=== PATIENT | female | born 1990 | race Caucasian/White ===

== ENCOUNTER 2020-11-17 22:08 | Emergency (ER) | payer OTHER, SELFPAY ==
--- NOTE | ~2020-11-17 | XR_ITS ---
EXAMINATION: XR chest 2V 11/17/2020 23:05 INDICATION: Cough and fever. Sore throat. PROCEDURE: 2 view chest COMPARISON: No prior studies for comparison. FINDINGS: The lungs are clear. The cardiomediastinal silhouette is within normal limits. There are no pleural effusions. There is no pneumothorax suspected. IMPRESSION: 1: NO ACUTE CARDIOPULMONARY DISEASE. Reviewed, dictated and finalized at location A.
[2020-11-17 22:15] VITALS: BP 154/89; PULSE 101; RESP 20; TEMP 36.9; O2SAT 100
--- NOTE | 2020-11-18 00:17 | ED.URI ---
HPI - URI/Sore Throat General Chief Complaint: Upper Respiratory Infection Stated Complaint: Cough/sore throat/fever Time Seen by Provider: 11/17/20 23:13 Source: patient Mode of arrival: ambulatory Limitations: no limitations History of Present Illness HPI Narrative: Patient is a 30 year old female who presents with complaints of cough x 3-4 days. She reports intermittent body aches and chills. She reports she is vaccinated for Covid and denies known Covid exposure. Patient also reports bit by a cat earlier in the week and has also been taking Augmentin. She is also requesting UA because of urinary frequency. She denies further complaints. She denies significant medical history. Related Data Allergies Allergy/AdvReac Type Severity Reaction Status Date / Time No Known Allergies Allergy Verified 11/17/20 22:09 Review of Systems Review of Systems: Narrative: CONSTITUTIONAL: Denies fever, chills, or sweats. EYES: Denies visual changes, redness, or discharge. ENT: Denies rhinorrhea, congestion, reports sore throat. CARDIOVASCULAR: Denies chest pain, palpitations, or edema. RESPIRATORY: Reports cough denies SOB. GASTROINTESTINAL: Denies abdominal pain, nausea, vomiting, or diarrhea. GENITOURINARY: Denies dysuria or hematuria. SKIN: Denies rash or itching. MUSCULOSKELETAL: Denies back pain, joint pain, or myalgia. NEUROLOGIC: Denies headache, numbness, dizziness, or weakness. PSYCHIATRIC: Denies anxiety or depression. PMFSH Family History Family History Mother Depression Family history of malignant neoplasm of cervix Family history of seizure disorder Social History Social History (Updated 11/18/20 @ 00:40 by CESILIA Hogue) Smoking status: Never smoker Second hand tobacco smoke exposure: Yes Alcohol intake: never Substance use: never Living arrangements: with family Comments At the time of signature, I have reviewed and agree with nursing past medical, surgical, social, and family history unless otherwise noted. Please see nursing chart for further information. There is no relevant family history pertinent to the presenting complaint. Exam Narrative: Exam Narrative: GENERAL: Well-appearing, well-nourished, and in no acute distress. HEAD: Normocephalic, atraumatic. EYES: EOMI. No redness or drainage. Conjunctiva are normal. ENT: Mucous membranes pink and moist. Throat mild erythema. Uvula midline. NECK: AROM. Supple. No lymphadenopathy. CHEST: No respiratory distress. Clear to auscultation. HEART: Regular rate and rhythm. EXTREMITIES: Normal range of motion. No edema. SKIN: Warm, dry, no rash. NEURO: No focal deficits. Alert and oriented x3. Gait steady. PSYCH: Normal affect. No signs of depression or anxiety. Course Vital Signs Vital signs: Vital Signs Temperature 36.9 C 11/17/20 22:15 Pulse Rate 101 H 11/17/20 22:15 Respiratory Rate 20 11/17/20 22:15 Blood Pressure 154/89 H 11/17/20 22:15 Pulse Oximetry 100 11/17/20 22:15 Temperature 36.9 C 11/17/20 22:15 Pulse Rate 101 H 11/17/20 22:15 Respiratory Rate 20 11/17/20 22:15 Blood Pressure 154/89 H 11/17/20 22:15 Pulse Oximetry 100 11/17/20 22:15 Reviewed-patient is informed that they may have pre-hypertension or hypertension based on a blood pressure reading. I recommend the patient call the primary care provider listed on their discharge instructions or a physician of their choice this week to arrange follow-up for further evaluation of possible pre-hypertension or hypertension. MDM - URI/Sore Throat MDM Narrative Medical decision making narrative: Patient's UA negative, chest x-ray negative. Patient has previously had Covid vaccine and refuses Covid testing at this time. Discussed with patient most likely viral illness. Continue taking Augmentin for cat bite. Patient to follow-up with PCP in 3 to 5 days if symptoms persist. Started on Tessalon for
[2020-11-18 00:25] LABS: Add Urine Microscopic? YES; Appearance Urine Clear (Clear); Bilirubin Urine Negative (Negative); Blood Urine 3+ (Negative); Color Urine Straw (Yellow); Glucose Urine UA Negative (Negative); Ketones Urine Negative (Negative); Leukocyte Esterase Ur Trace LEU/UL (Negative); Nitrate Urine Negative (Negative); Protein Urine Negative (Negative); RBC Urine 21-50 /hpf (0-2); Specific Grav Ur 1.006 (1.001-1.035); Squamous Epithelial Cell Urine Many /hpf (Few); Urobilinogen Urine Negative mg/dL (<2.0); WBC Urine 0-3 /hpf
== END 2020-11-18 02:15 | disposition home or self-care (01) ==
PROVIDERS: Emergency Provider Nurse Practitioner; PCP Nurse Practitioner Family
DX: J06.9 Acute upper respiratory infection, unspecified (principal); R03.0 Elevated blood-pressure reading, without diagnosis of hypertension
CPT/HCPCS: 71046; 81001; 99283

== ENCOUNTER 2021-05-10 16:25 | Emergency (ER) | payer OTHER, SELFPAY ==
--- NOTE | ~2021-05-10 | XR_ITS ---
EXAMINATION: XR foot RT min 3V DATE: 05/10/2021 17:29 INDICATION: Dropped heavy object onto the distal metatarsals the right foot presenting with pain. TECHNIQUE: Dorsoplantar, two oblique and lateral views of the right foot were obtained. COMPARISON: None. FINDINGS: Alignment is normal. No fracture. Joint spaces are normal. Small plantar calcaneal spur. Soft tissue swelling with subcutaneous edema over the dorsal aspect of the distal forefoot. IMPRESSION: 1. No acute osseous abnormality. Reviewed, dictated and finalized at location A. WORKER MACHINE
[2021-05-10 16:40] VITALS: BP 136/74; PULSE 83; RESP 16; TEMP 36.9; O2SAT 99
--- NOTE | 2021-05-10 17:46 | ED.LOWEXIN ---
HPI - Extremity Injury (Lower) General Chief Complaint: Extremity Injury, Lower Stated Complaint: pain/swelling right foot Time Seen by Provider: 05/10/21 17:30 Source: patient Mode of arrival: ambulatory Limitations: no limitations History of Present Illness HPI Narrative: Andra Bhatia is a 30 yo female with no PMH who [facility] after dropping a lamp on the top of her right foot about 2 to 3 days ago. Continues to have some swelling and is tender Related Data Allergies Allergy/AdvReac Type Severity Reaction Status Date / Time No Known Allergies Allergy Verified 05/10/21 17:34 Review of Systems Review of Systems: CONSTITUTIONAL: Denies fever, chills, sweats. EYES: Denies visual changes, redness, discharge. ENT: Denies rhinorrhea, congestion, sore throat, otalgia. CARDIOVASCULAR: Denies chest pain, palpitations, edema. RESPIRATORY: Denies dyspnea, wheezing, cough GASTROINTESTINAL: Denies abdominal pain, nausea, vomiting, diarrhea. GENITOURINARY: Denies dysuria, hematuria, abnormal discharge SKIN: Denies rash or itching. NEUROLOGIC: Denies numbness, or focal weakness. PSYCHIATRIC: Denies anxiety or depression. Right dorsal foot pain PMFSH Past Medical History Medical History (Updated 05/10/21 @ 17:51 by Tamiko Lama CNP) Morbid obesity Family History Family History Mother Depression Family history of malignant neoplasm of cervix Family history of seizure disorder Social History Social History Smoking status: Never smoker Second hand tobacco smoke exposure: Yes Alcohol intake: never Substance use: never Comments At time of signature, I agree with nursing past medical, surgical, social and family history. There is no relevant family history pertinent to the presenting complaint. Exam Narrative: GENERAL: This is a well-nourished, well-developed patient, in mild distress. Patient is morbidly obese HEAD: normocephalic, atraumatic. EYES: Sclera clear/white. Vision is grossly intact. EARS: External ears normal, . Hearing grossly intact. NOSE: External nose normal without nasal discharge, nares without redness, no rhinorrhea. THROAT: Mucous membranes moist, NECK: Neck supple, non-tender CARDIOVASCULAR: Regular rate and rhythm without murmurs, gallops, or rubs. RESPIRATORY: Clear to auscultation. Breath sounds equal bilaterally. No wheezes, rales, or rhonchi. GASTROINTESTINAL: Abdomen soft, SKIN: warm, intact with no suspicious lesions or rash, good texture and turgor. NEURO: awake, alert, and oriented to person, place and time. There were no obvious focal neurologic abnormalities. Steady gait EXTREMITIES: Normal range of motion. Right dorsal foot pain2+ plus pedal pulse, swelling, tender with walking BACK: Nontender without deformity Course Course Emergency Course: Patient dropped a lamp on top of right dorsum of foot a couple days ago 3 shows no acute osseous abnormality-soft tissue swelling with edema over dorsal aspect of forefoot small plantar calcaneal spur Patient's foot placed in Kuldeep wrap discussed wearing supportive shoes given ibuprofen 800 mg Vital Signs Vital signs: Vital Signs Temperature 98.4 F 05/10/21 16:40 Pulse Rate 83 05/10/21 16:40 Respiratory Rate 16 05/10/21 16:40 Blood Pressure 136/74 05/10/21 16:40 Pulse Oximetry 99 05/10/21 16:40 Temperature 98.4 F 05/10/21 16:40 Pulse Rate 83 05/10/21 16:40 Respiratory Rate 16 05/10/21 16:40 Blood Pressure 136/74 05/10/21 16:40 Pulse Oximetry 99 05/10/21 16:40 MDM - Extremity Injury (Lower) Differential Diagnosis Differential diagnosis: Likely ankle sprain and strain, fracture of toe and other Critical Care Time Critical Care Time Critical Care Time: No Discharge Plan Discharge Clinical Impression: Injury of foot, right Qualifiers: Encounter type: initial enco
== END 2021-05-10 17:53 | disposition home or self-care (01) ==
PROVIDERS: Emergency Provider Nurse Practitioner; PCP Nurse Practitioner Family
DX: S99.921A Unspecified injury of right foot, initial encounter (principal); W20.8XXA Other cause of strike by thrown, projected or falling object, initial encounter; E66.01 Morbid (severe) obesity due to excess calories; Z68.43 Body mass index [BMI] 50.0-59.9, adult
CPT/HCPCS: 73630; 99213; G0463

== ENCOUNTER 2021-09-14 10:53 | Outpatient (CLI) | payer BC, SELFPAY ==
--- NOTE | 2021-09-14 11:30 | NEURO_ITS ---
Impression: # Complains of nocturnal numbness of hands. # Right moderate Carpal Tunnel Syndrome. # Left evolving Carpal Tunnel Syndrome. # No ulnar neuropathy. # Normal needle/EMG exam. Nerve Conduction Studies Anti Sensory Summary Table Stim Site NR Peak (ms) P-T Amp (?V) Site1 Site2 Delta-P (ms) Dist (cm) Irineo (m/s) Left Median Anti Sensory (2-3nd Digit) Wrist 3.4 27.3 Wrist 2-3nd Digit 3.4 14.0 41 Wrist 3.7 11.1 Wrist 2-3nd Digit 3.4 14.0 41 Right Median Anti Sensory (2-3nd Digit) Wrist 5.1 16.3 Wrist 2-3nd Digit 5.1 14.0 27 Wrist 4.7 12.0 Wrist 2-3nd Digit 5.1 14.0 27 Left Radial Anti Sensory (Base 1st Digit) Wrist 1.8 13.5 Wrist Base 1st Digit 1.8 0.0 Right Radial Anti Sensory (Base 1st Digit) Wrist 1.8 17.9 Wrist Base 1st Digit 1.8 0.0 Left Ulnar Anti Sensory (5th Digit) Wrist 2.1 90.1 Wrist 5th Digit 2.1 14.0 67 Right Ulnar Anti Sensory (5th Digit) Wrist 1.9 47.2 Wrist 5th Digit 1.9 14.0 74 Motor Summary Table Stim Site NR Onset (ms) O-P Amp (mV) Site1 Site2 Delta-0 (ms) Dist (cm) Irineo (m/s) Left Median Motor (Abd Poll Brev) Wrist 3.7 5.1 Elbow Wrist 4.2 26.0 62 Elbow 7.9 1.4 Right Median Motor (Abd Poll Brev) Wrist 5.9 2.3 Elbow Wrist 4.8 31.0 65 Elbow 10.7 2.3 Left Ulnar Motor (Abd Dig Minimi) Wrist 2.2 6.5 A Elbow Wrist 4.1 26.0 63 A Elbow 6.3 5.3 Right Ulnar Motor (Abd Dig Minimi) Wrist 2.0 5.6 A Elbow Wrist 4.3 28.0 65 A Elbow 6.3 3.3 F Wave Studies NR F-Lat (ms) L-R F-Lat (ms) Left Median (Mrkrs) (Abd Poll Brev) 25.81 2.08 Right Median (Mrkrs) (Abd Poll Brev) 27.89 2.08 Left Ulnar (Mrkrs) (Abd Dig Min) 24.55 0.84 Right Ulnar (Mrkrs) (Abd Dig Min) 25.39 0.84 EMG Side Muscle Nerve Root Ins Act Fibs Amp Dur Recrt Comment Right 1stDorInt Ulnar C8-T1 Nml Nml Nml Nml Nml Right Ext Indicis Radial (Post Int) C7-8 Nml Nml Nml Nml Nml Right Ext Digitorum Radial (Post Int) C7-8 Nml Nml Nml Nml Nml Right BrachioRad Radial C5-6 Nml Nml Nml Nml Nml Right PronatorTeres Median C6-7 Nml Nml Nml Nml Nml Right Abd Poll Brev Median C8-T1 Nml Nml Nml Nml Nml Left 1stDorInt Ulnar C8-T1 Nml Nml Nml Nml Nml Left Ext Indicis Radial (Post Int) C7-8 Nml Nml Nml Nml Nml Left Ext Digitorum Radial (Post Int) C7-8 Nml Nml Nml Nml Nml Left BrachioRad Radial C5-6 Nml Nml Nml Nml Nml Left PronatorTeres Median C6-7 Nml Nml Nml Nml Nml Left Abd Poll Brev Median C8-T1 Nml Nml Nml Nml Nml MTDD
== END 2021-09-14 10:54 | disposition home or self-care (01) ==
LOC: ANHNEURO 10:57
PROVIDERS: PCP Nurse Practitioner Family; Visit Provider Nurse Practitioner Family
DX: G56.03 Carpal tunnel syndrome, bilateral upper limbs (principal); R20.0 Anesthesia of skin; R20.2 Paresthesia of skin
CPT/HCPCS: 95886; 95911

== ENCOUNTER 2022-05-21 06:24 | Emergency (ER) | payer BC, SELFPAY ==
[2022-05-21 06:36] VITALS: BP 148/80; PULSE 112; RESP 18; TEMP 36.8; O2SAT 98
[2022-05-21 09:10] LABS: Influenza A QL RT-PCR Positive (Negative); Influenza B QL RT-PCR Negative (Negative); SARS-CoV-2 RNA PCR Negative
--- NOTE | 2022-05-21 09:27 | ED.FEVER ---
HPI - Fever General Chief Complaint: Fever Stated Complaint: Fever Time Seen by Provider: 05/21/22 06:59 Source: patient and family Mode of arrival: ambulatory Limitations: no limitations History of Present Illness HPI Narrative: 31-year-old otherwise healthy here with complaints of fever since this morning has occasional cough. She states that she was disoriented in the morning however now she feels much better. She denies any chest pain abdominal pain. No history of nausea or vomiting or diarrhea. She states all her symptoms started this morning. MD elicited complaint: fever Onset (ago): day(s) (1) Exacerbating factors: nothing Relieving factors: nothing Associated symptoms: denies other symptoms Treatments prior to arrival fever: none Related Data Allergies Allergy/AdvReac Type Severity Reaction Status Date / Time No Known Allergies Allergy Verified 05/21/22 07:45 Review of Systems Review of Systems: All systems reviewed & are unremarkable except as noted in HPI and below Constitutional: Constitutional: Reports no additional constitutional complaints Eyes: Eyes: Reports no additional eye complaints ENT: Reports system reviewed and no additional complaints, except as documented Cardiovascular: Cardiovascular: Reports no additional cardiovascular complaints Respiratory: Respiratory: Reports no additional respiratory complaints Gastrointestinal: Gastrointestinal: Reports no additional gastrointestinal complaints Musculoskeletal: Musculoskeletal: Reports no additional musculoskeletal complaints [facility] Past Medical History Medical History (Updated 05/21/22 @ 09:33 by Manuel Figueroa MD) Morbid obesity Family History Family History Mother Depression Family history of malignant neoplasm of cervix Family history of seizure disorder Social History Social History Smoking status: Never smoker Second hand tobacco smoke exposure: Yes Alcohol intake: never Substance use: never Exam Narrative: GENERAL: Well-appearing, well-nourished, and in no acute distress. HEAD: Normocephalic, atraumatic. EYES: PERRLA and EOMI NECK: Supple. CHEST: Clear to auscultation. No respiratory distress. HEART: Regular rate and rhythm. No murmur heard. Normal peripheral pulses. ABDOMEN: Soft, nontender, nondistended, normal active bowel sounds. EXTREMITIES: Normal range of motion. No edema. SKIN: Warm, dry, no rash. NEURO: No focal deficits. Alert and oriented x3. PSYCH: Normal mood and affect. Course Course Emergency Course: Informed patient about her lab work, advised her to drink more fluids, take Tylenol or ibuprofen for body aches and fever and rest. Vital Signs Vital signs: Vital Signs Temperature 36.8 C 05/21/22 06:36 Pulse Rate 112 H 05/21/22 06:36 Respiratory Rate 18 05/21/22 06:36 Blood Pressure 148/80 H 05/21/22 06:36 Pulse Oximetry 98 05/21/22 06:36 Oxygen Delivery Room Air 05/21/22 06:36 Temperature 36.8 C 05/21/22 06:36 Pulse Rate 112 H 05/21/22 06:36 Respiratory Rate 18 05/21/22 06:36 Blood Pressure 148/80 H 05/21/22 06:36 Pulse Oximetry 98 05/21/22 06:36 Oxygen Delivery Room Air 05/21/22 06:36 MDM - Fever Lab Data Labs: Lab Results 05/21/22 Range/Units 08:26 Influenza A (RT-PCR) Positive (Negative) Influenza B (RT-PCR) Negative (Negative) SARS-CoV-2 RNA (RT-PCR) Negative Discharge Plan Discharge Clinical Impression: Influenza Patient Disposition: Home, Self-Care Condition: Stable Instructions: Influenza (ED) Additional Instructions: Take Tylenol ibuprofen for body aches and fever, Tamiflu as prescribed. Follow-up with your primary doctor Prescriptions: New oseltamivir [Tamiflu] 75 mg capsule 75 mg PO Q12H 5 Days Qty: 10 0RF Follow-up/Referrals: EDGAR,BEN ALEX [Prim
[2022-05-21 10:05] VITALS: BP 123/69; PULSE 85; RESP 20; O2SAT 98
== END 2022-05-21 10:06 | disposition home or self-care (01) ==
PROVIDERS: Emergency Provider Family Medicine; PCP Nurse Practitioner Family
DX: J10.1 Influenza due to other identified influenza virus with other respiratory manifestations (principal); Z20.822 Contact with and (suspected) exposure to COVID-19; E66.01 Morbid (severe) obesity due to excess calories
CPT/HCPCS: 87636; 99283

== ENCOUNTER 2023-07-29 14:10 | Outpatient (CLI) | payer OTHER, SELFPAY ==
[2023-07-29 15:09] LABS: Basophils Absolute Auto 0.1 K/mm3 (0.0-0.1); Basophils Percent Auto 0.5 % (0.2-1.2); Eosinophils Absolute Auto 0.3 K/mm3 (0-0.3); Eosinophils Percent Auto 2.6 % (0-4.4); Hematocrit 45.5 % (37.0-47.0); Hemoglobin 14.1 g/dL (12.0-15.0); Immature Granulocyte Absolute 0.05 K/mm3 (0.00-0.031); Immature Granulocyte Percent A 0.5 % (0-0.5); Lymphocytes Absolute Auto 2.16 K/mm3 (0.9-3.2); Lymphocytes Percent Auto 20.3 % (18.3-44.2); Mean Corpuscular Hemoglobin 28.3 pg (26-34); Mean Corpuscular Volume 91.2 fl (80-100); Mean Platelet Volume 10.2 fl (7.4-10.4); Monocytes Absolute Auto 0.6 K/mm3 (0.1-0.6); Monocytes Percent Auto 5.3 % (2.6-8.5); Neutrophils Absolute Auto 7.6 K/mm3 (1.3-6.7); Neutrophils Percent Auto 70.8 % (45.5-73.1); Platelet Count Result 328 k/mm3 (150-375); Red Blood Count 4.99 M/mm3 (4.2-5.4); Red Cell Distribution Width 14.1 % (11.5-14.5); White Blood Count 10.7 K/mm3 (4.5-10.0)
[2023-07-29 15:19] LABS: Alanine Aminotransferase 49 U/L (6-35); Albumin Level 3.9 g/dL (3.5-5.1); Alkaline Phosphatase 80 U/L (38-126); Anion Gap 6 mmol/L (8-16); Aspartate Amino Transferase 25 U/L (14-36); Bilirubin,Total 0.5 mg/dL (0.2-1.3); Blood Urea Nitrogen 10 mg/dL (7-17); Calcium 8.9 mg/dL (8.4-10.2); Carbon Dioxide 25 mmol/L (22-30); Chloride 108 mmol/L (98-107); Cholesterol 195 mg/dL (0-200); Estimated Glomerular Filt Rate > 60; Glucose 96 mg/dL (65-110); HDL Direct 35 mg/dL; Magnesium 2.3 mg/dL (1.6-2.3); Potassium 4.1 mmol/L (3.4-5.0); Sodium 139 mmol/L (137-145); Triglycerides 206 mg/dL (<150); Uric Acid 6.1 mg/dL (2.5-7.5)
[2023-07-29 15:30] LABS: LDL Cholesterol Direct 126 mg/dL
[2023-07-29 15:44] LABS: Appearance Urine Clear (Clear); Bacteria Urine Rare /hpf; Bilirubin Urine Negative (Negative); Blood Urine Negative (Negative); Color Urine Yellow (Yellow); Glucose Urine UA Negative (Negative); Ketones Urine Negative (Negative); Leukocyte Esterase Ur Trace LEU/UL (Negative); Nitrate Urine Negative (Negative); Non Pathogenic Casts 0-2; Protein Urine Negative (Negative); RBC Urine 0-2 /hpf (0-2); Specific Grav Ur 1.024 (1.001-1.035); Squamous Epithelial Cell Urine Few /hpf (Few); Urobilinogen Urine 0.2 mg/dL (<2.0); WBC Urine 0-5 /hpf
[2023-07-29 15:56] LABS: Add Urine Microscopic? YES
[2023-07-29 16:24] LABS: Folic Acid 6.4 ng/mL (2.76->20)
[2023-07-29 16:59] LABS: Hepatitis C Virus Antibody Negative (Negative)
[2023-07-29 20:42] LABS: Vitamin D 25 Hydroxy < 12.8 ng/mL
== END 2023-07-29 14:11 | disposition home or self-care (01) ==
LOC: ANHLAB 14:19
PROVIDERS: PCP Nurse Practitioner Family; Visit Provider Nurse Practitioner Family
DX: E55.9 Vitamin D deficiency, unspecified (principal); N94.6 Dysmenorrhea, unspecified; K21.9 Gastro-esophageal reflux disease without esophagitis; E66.01 Morbid (severe) obesity due to excess calories; Z68.41 Body mass index [BMI] 40.0-44.9, adult; Z87.42 Personal history of other diseases of the female genital tract; Z11.59 Encounter for screening for other viral diseases
CPT/HCPCS: 36415; 80053; 80061; 81001; 82306; 82607; 82746; 83525; 83735; 84443; 84550; 85025; 86003; 86803

== ENCOUNTER 2024-03-04 07:04 | Outpatient (CLI) | payer OTHER, SELFPAY ==
[2024-03-04 08:08] LABS: Basophils Absolute Auto 0.1 K/mm3 (0.0-0.1); Basophils Percent Auto 0.4 % (0.2-1.2); Eosinophils Absolute Auto 0.5 K/mm3 (0-0.3); Eosinophils Percent Auto 3.3 % (0-4.4); Hematocrit 41.2 % (37.0-47.0); Hemoglobin 13.3 g/dL (12.0-15.0); Immature Granulocyte Absolute 0.04 K/mm3 (0.00-0.031); Immature Granulocyte Percent A 0.3 % (0-0.5); Lymphocytes Percent Auto 23.2 % (18.3-44.2); Mean Corpuscular HGB Conc 32.3 g/dl (32-36); Mean Corpuscular Hemoglobin 29.5 pg (26-34); Mean Corpuscular Volume 91.4 fl (80-100); Mean Platelet Volume 10.3 fl (7.4-10.4); Monocytes Absolute Auto 0.9 K/mm3 (0.1-0.6); Monocytes Percent Auto 6.2 % (2.6-8.5); Neutrophils Absolute Auto 9.2 K/mm3 (1.3-6.7); Neutrophils Percent Auto 66.6 % (45.5-73.1); Platelet Count Result 326 k/mm3 (150-375); Red Blood Count 4.51 M/mm3 (4.2-5.4); Red Cell Distribution Width 14.1 % (11.5-14.5); White Blood Count 13.8 K/mm3 (4.5-10.0)
[2024-03-04 08:23] LABS: Alanine Aminotransferase 58 U/L (6-35); Alkaline Phosphatase 67 U/L (38-126); Anion Gap 9 mmol/L (4-12); Aspartate Amino Transferase 30 U/L (14-36); Bilirubin,Total 0.5 mg/dL (0.2-1.3); Blood Urea Nitrogen 13 mg/dL (7-17); Calcium 8.4 mg/dL (8.4-10.2); Carbon Dioxide 29 mmol/L (22-30); Chloride 101 mmol/L (98-107); Estimated Glomerular Filt Rate > 60; Glucose 76 mg/dL (65-110); Potassium 3.3 mmol/L (3.4-5.0); Sodium 139 mmol/L (137-145)
[2024-03-04 10:36] LABS: Free T4 Free Thyroxine 1.16 ng/mL (0.78-2.19); Vitamin D 25 Hydroxy 30.1 ng/mL
== END 2024-03-04 07:05 | disposition home or self-care (01) ==
LOC: ANHLAB 07:05
PROVIDERS: PCP Nurse Practitioner Family; Visit Provider Nurse Practitioner Family
DX: E66.01 Morbid (severe) obesity due to excess calories (principal); Z68.43 Body mass index [BMI] 50.0-59.9, adult; E88.810 Metabolic syndrome; E55.9 Vitamin D deficiency, unspecified
CPT/HCPCS: 36415; 80053; 82306; 83525; 84439; 84443; 85025

== ENCOUNTER 2025-02-17 05:36 | Outpatient (CLI) | payer OTHER, SELFPAY | END 2025-02-17 05:37 | disposition home or self-care (01) | PROVIDERS: PCP Nurse Practitioner Family; Visit Provider Nurse Practitioner Family | DX: O99.210 Obesity complicating pregnancy, unspecified trimester (principal); E66.01 Morbid (severe) obesity due to excess calories; Z3A.00 Weeks of gestation of pregnancy not specified | CPT/HCPCS: 80307 ==

== ENCOUNTER 2025-03-01 13:49 | Inpatient (IN) | payer OTHER, SELFPAY ==
--- NOTE | ~2025-03-01 | US_ITS ---
EXAMINATION: US pelvic complete w TV INDICATION: Right lower quadrant pain. History of ovarian cysts. Comparison:No prior studies for comparison. TECHNIQUE: Multiple transabdominal and endovaginal sonographic images of the pelvis performed. FINDINGS: The uterus measures 6.5 x 3 x 4.6 cm. There is a small uterine fibroid measuring 8 mm posteriorly in the there is trace fluid in the endometrium. The endometrial complex measures 6.4 mm. The right ovary measures 3.8 x 2.4 x 1.8 cm and the left ovary measures 3.8 x 2.2 x 1.8 cm. There are small follicles in each ovary. Normal doppler signal in both ovaries. There is no free fluid in the pelvis. There are no abnormal masses seen on either side. IMPRESSION: 1. Small uterine fibroid posteriorly in the myometrium measuring 3 mm. Reviewed, dictated and finalized at location O.
--- NOTE | ~2025-03-01 | CT_ITS ---
EXAMINATION: CT abdomen pelvis w con DATE: 03/05/2025 08:34 INDICATION: Fever and leukocytosis. TECHNIQUE: Computed tomography (CT) of the abdomen and pelvis was performed with 100 mL Omnipaque-350 intravenous contrast. Automated exposure control and iterative reconstruction technique were employed. The dose-length product was 1799.26 mGy-cm. COMPARISON: 03/01/2025 FINDINGS: Small right pleural effusion. Atelectasis in bilateral lower lobes, right greater than left. Heart size is normal. No pericardial effusion. Liver, gallbladder, spleen, pancreas, bilateral adrenal glands and kidneys are normal. Postoperative changes consistent reported recent appendectomy with stranding in the right lower quadrant about the tip the cecum and extending cephalad along the distal aspect of a surgical drain with distal tip along the caudal tip of the liver. No bowel obstruction. There is a small amount of likely residual postoperative gas along the nondependent anterior abdominal wall. Additional small amount of likely postoperative gas along a likely supraumbilical laparoscopy port tracts as well as along with fat within a very small umbilical hernia. Small amount of likely reactive free fluid in the deep pelvis. No organized abscess. Bladder, anteverted uterus and bilateral ovaries are normal. No pathologically enlarged abdominal or pelvic lymphadenopathy. Bones are unremarkable. IMPRESSION: 1. Expected post operative changes of a recent laparoscopic appendectomy with small amount of residual free intraperitoneal gas and fluid. No organized abscess or other acute intra abdominal/pelvic process. Reviewed, dictated and finalized at location A. IMPRESSION: 1. Expected post operative changes of a recent laparoscopic appendectomy with s mall amount of residual free intraperitoneal gas and fluid. No organized absces s or other acute intra abdominal/pelvic process.
--- NOTE | ~2025-03-01 | CT_ITS ---
EXAMINATION: CT abdomen pelvis w con, 03/01/2025 15:34 CDT HISTORY: rlq pain, n/v COMPARISON: No comparisons available. TECHNIQUE: CT scan of the abdomen and pelvis was performed with contrast. Isovue 300, 92cc injected IV. One or more of the following dose reduction techniques were used: automated exposure control, adjustment of the mA and/or kV according to patient size, use of iterative reconstruction technique. Unless otherwise stated, incidental findings do not require dedicated follow up imaging FINDINGS: CT abdomen: LUNG BASES: The lung bases are clear. The visualized portions of the heart and pericardium are unremarkable. LIVER: Minimal hepatic steatosis. Portal vein patent. No intrahepatic biliary duct dilatation. SPLEEN: Unremarkable, no splenomegaly. KIDNEYS: Right Kidney: Unremarkable. No calculi. No hydronephrosis. Left Kidney: Unremarkable. No calculi. No hydronephrosis ADRENAL GLANDS: Unremarkable. PANCREAS: Unremarkable. GALLBLADDER/BILIARY: Unremarkable. No biliary dilatation. STOMACH AND ESOPHAGUS: Visualized stomach and esophagus within normal limits. BOWEL/MESENTERY: No colitis or diverticulitis. Appendix is thickened measuring 1 cm with periappendiceal inflammatory changes, there is no perforation or abscess. There are thickened or dilated loops of small bowel. ADENOPATHY/RETROPERITONEUM: No lymphadenopathy. AORTA/VASCULATURE: Normal caliber aorta. FREE FLUID OR FREE AIR: None. CT pelvis: SOLID ORGANS/REPRODUCTIVE: Unremarkable. BLADDER: Within normal limits. OSSEOUS STRUCTURES: No acute osseous abnormality.No suspicious lesions. OVERLYING SOFT TISSUES: Unremarkable. IMPRESSION: Acute appendicitis. No perforation or abscess Reviewed, dictated and finalized at location A.
[2025-03-01 13:52] VITALS: BP 153/94; PULSE 84; RESP 20; TEMP 36; O2SAT 99
--- OUTSIDE RECORDS SUMMARY | 2025-03-01 13:53 | XMS_ITS | Clinical Summary ---
Author Organization [facility] Address [address] [place] [address] Phone Care Team Providers Care Unit Assistant Name Role Phone Unavailable Primary Care Provider Unavailabl e Allergies No known active allergies Medications HYDROcodone-jaclyn taminophen (NORCO) 5-325 mg tabletIndicatio ns:S/P carpal tunnel release Take 1 Tablet by mouth every 6 hours as needed for Pain, Moderate. 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 Gender Identity Not on file Sexual Orientation Not on file Last Filed Vital Signs Vital Sign Reading Time Taken Comments Blood Pressure 109/80 11/14/2021 9:15 AM CDT Pulse 84 11/14/2021 9:15 AM CDT Temperature 36.3 C (97.4 F) 11/14/2021 8:44 AM CDT Respiratory Rate 23 11/14/2021 9:15 AM CDT Oxygen Saturation 98% 11/14/2021 9:15 AM CDT Inhaled Oxygen Concentration - - Weight 145.6 kg (321 lb) 11/28/2021 9:32 AM CDT Height 157.5 cm (5' 2) 11/28/2021 9:32 AM CDT Body Mass Index 58.71 11/28/2021 9:32 AM CDT Plan of Treatment Health Maintenance Due Date Last Done Comments HEPATITIS B VACCINES (1 of 3 - 19+ 3-dose series) 10/22 HPV/Cotest (21-29) 2013 HPV VACCINES (1 - 3-dose SCDM series) 11/07/2019 CERVICAL CANCER SCREENING 2022 HPV/Cotest (30-65) 2022 PAP SMEAR 2022 INFLUENZA VACCINE (#1) 2025 03/28/2022 DTAP/TDAP/TD VACCINES (2 - Td or Tdap) 04/20/2030 Insurance RX [facility] [employer]
--- OUTSIDE RECORDS SUMMARY | 2025-03-01 13:53 | XMS_ITS | Clinical Summary ---
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 Gender Identity Not on file Sexual Orientation Not on file Plan of Treatment Health Maintenance Due Date Last Done Comments Hepatitis C Virus (HCV) Screening 1992 Hepatitis B Immunization (1 of 3 - 19+ 3-dose series) 11/07/2011 Pap Smear 2013 Human Papillomavirus (HPV) Immunization (1 - 3-dose SCDM series) 11/07/2019 Cervical Cancer Screening (CCS) 2022 HPV/Cotest 2022 SARS-COV-2 Immunization ( season) 2024 Influenza Immunization (#1) 2025 09/0 01/2017, 02/28/2016 Respiratory Syncytial Virus (RSV) Immunization (Adult) (1 - 1-dose 75+ series) 11/07/2067 DTaP/Tdap/Td Immunization Discontinued 04/20/2020 TdaP Immunization Completed 04/20/2020 Meningococcal Immunization (ACWY) Aged Out No longer eligible based on patient's age to complete this topic Pneumococcal Immunization Combined Aged Out No longer eligible based on patient's age to complete this topic Rotavirus Immunization Aged Out No lo nger eligible based on patient's age to complete this topic
--- OUTSIDE RECORDS SUMMARY | 2025-03-01 14:20 | XMS_ITS | Clinical Summary ---
Author Organization 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
--- OUTSIDE RECORDS SUMMARY | 2025-03-01 14:20 | XMS_ITS | Clinical Summary ---
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
[2025-03-01 14:32] LABS: BEDSIDEPREGUCG Negative (Negative)
[2025-03-01 14:51] LABS: Hematocrit 44.1 % (37.0-47.0); Hemoglobin 14.2 g/dL (12.0-15.0); Immature Granulocyte Percent A 0.5 % (0-0.5); Lymphocytes Absolute Auto 1.89 K/mm3 (0.9-3.2); Mean Corpuscular HGB Conc 32.2 g/dl (32-36); Mean Corpuscular Hemoglobin 28.7 pg (26-34); Mean Corpuscular Volume 89.3 fl (80-100); Nucleated Red Blood Cells Absolute Auto 0.000 K/mm3 (0.0-0.012); Nucleated Red Blood Cells Perc 0.0 % (0.0-0.2); Platelet Count Result 385 k/mm3 (150-375); Red Blood Count 4.94 M/mm3 (4.2-5.4); White Blood Count 14.6 K/mm3 (4.5-10.0)
[2025-03-01 14:52] LABS: Add Urine Microscopic? NO; Appearance Urine Clear (Clear); Glucose Urine UA Negative (Negative); Leukocyte Esterase Ur Negative LEU/UL (Negative); Nitrate Urine Negative (Negative); Specific Grav Ur 1.020 (1.001-1.035)
--- NOTE | 2025-03-01 14:53 | ED_ITS ---
HPI - Abdominal Pain General Chief Complaint: Abdominal Pain <Antonietta Carty PA-C - Last Filed: 03/01/25 17:29> Stated Complaint: LRQ pain <Antonietta Carty PA-C - Last Filed: 03/01/25 17:29> Time Seen by Provider: 03/01/25 14:09 <Antonietta Carty PA-C - Last Filed: 03/01/25 17:29> Source: patient <CYNTHIA Chopra Last Filed: 03/01/25 17:29> Mode of arrival: ambulatory <Antonietta Carty PA-C - Last Filed: 03/01/25 17:29> Limitations: no limitations <Antonietta Carty PA-C - Last Filed: 03/01/25 17:29> History of Present Illness HPI narrative: Patient is a 34-year-old female who presents the ED with report of right lower abdominal pain. Patient reports pain began around 7:00 a.m. and somewhat woke her up from her sleep. Does radiate around slightly to her right lower back. Reports history of previous ovarian cysts and states this feels somewhat similar. Reports nausea, vomiting today. Denies dysuria, hematuria, diarrhea, constipation, fevers. <Antonietta Carty PA-C - Last Filed: 03/01/25 17:29> Related Data Allergies/Adverse Reactions: Allergies Allergy/AdvReac Type Severity Reaction Status Date / Time No Known Allergies Allergy Verified 03/01/25 13:55 <Antonietta Carty PA-C - Last Filed: 03/01/25 17:29> Review of Systems 2 Review of Systems: All systems reviewed & are unremarkable except as noted in HPI. <Antonietta Carty PA-C - Last Filed: 03/01/25 17:29> All systems reviewed & are unremarkable except as noted in HPI and below < Antonietta Carty PA-C - Last Filed: 03/01/25 17:29> [facility] Past Medical History Medical History: Medical History Morbid obesity <Antonietta Carty PA-C - Last Filed: 03/01/25 17:29> Family History Family History: Family History Mother Depression Family history of malignant neoplasm of cervix Family history of seizure disorder <Antonietta Carty PA-C - Last Filed: 03/01/25 17:29> Social History Social History: Social History Smoking status: Never smoker Second hand tobacco smoke exposure: Yes Alcohol intake: never Substance use: never Living arrangements: with family <Antonietta Carty PA-C - Last Filed: 03/01/25 17:29> Exam 2 Narrative: GENERAL: Well appearing, morbidly obese with BMI of 59.3, non-toxic, in no acute distress. HEAD: Normocephalic, atraumatic. RESPIRATORY: Airway patent, respirations nonlabored. Clear to auscultation bilaterally, no rales, rhonchi, wheezing. CARDIOVASCULAR: Regular rate and rhythm without murmurs, rubs, or gallops. ABDOMINAL: Soft, TTP in R lateral abdomen/R lower quadrant, nondistended. Normoactive BS. MUSCULOSKELETAL: Moves all extremities. No gross deformities. SKIN: Warm, dry, normal color. NEURO: A&O X3. Speech clear. Cranial nerves II-XII grossly intact. Steady gait. No ataxic movements. PSYCHIATRIC: Appropriate mood and affect. Normal interaction. <Antonietta Carty PA-C - Last Filed: 03/01/25 17:29> Course HOUSEKEEPING ASSOCIATE/PA Physician Supervision This visit was performed by both a physician and an APC. I performed all aspects of the MDM as documented. <Rolando Hauser MD - Last Filed: 03/01/25 18:30> Vital Signs Vital signs: Vital Signs Temperature 96.8 F L 03/01/25 13:52 Pulse Rate 84 03/01/25 13:52 Respiratory Rate 20 03/01/25 13:52 Blood Pressure 153/94 H 03/01/25 13:52 Pulse Oximetry 99 03/01/25 13:52 Temperature 96.7 F L 03/01/25 18:16 Pulse Rate 77 03/01/25 18:16 Respiratory Rate 16 03/01/25 17:03 Blood Pressure 139/93 H 03/01/25 18:16 Pulse Oximetry 99 03/01/25 18:16 <Antonietta Carty PA-C - Last Filed: 03/01/25 17:29> Vital Signs Temperature 96.8 F L 03/01/25 13:52 Pulse Rate 84 03/01/25 13:52 Respiratory Rate 20 03/01/25 13:52 Blood Pressure 153/94 H 03/01/25 13:52 Pulse Oximetry 99 03/01/25 13:52 Temperature 96.7 F L 03/01/25 18:16 Pulse Rate 77 03/01/25 18:16 Respiratory Rate 16 03/01/25 17:03 Blood Pressure 139/93 H 03/01/25 18:16 Pulse Oximetry 99 03/01/25 18:16 <Rolando Hauser MD - Last Filed: 03/01/25 18:30> MDM - Abdominal Pain MDM Narrative Medical decision making narrative: Patient presented to ED with right lower quadrant abdominal pain that began this morning, associated nausea and vomiting. History of previous ovarian cyst. Vital signs are stable upon arrival. Patient in no acute distress. Declined pain or nausea medicine at this time. Cbc with blood cell count of 14.6. Neutrophil predominance. No bandemia. CMP unremarkable. Normal LFTs and lipase. UA is clear. Pelvic ultrasound was also obtained and showing small uterine fibroid, no evidence of torsion. CT of the abdomen/pelvis was obtained and showing findings consistent with acute appendicitis. No perforation or abscess. Consistent with clinical picture. Started on zosyn. Discussed lab and imaging findings with Dr. Vides, general surgery, recommended admission under his service, continue abx, will see patient in the am and determine surgical vs nonsurgical management. Patient in agreement with plan. PRN pain meds ordered. <CYNTHIA Chopra Last Filed: 03/01/25 17:29> Patient presented to ED with right lower quadrant abdominal pain that began this morning, associated nausea and vomiting. History of previous ovarian cyst. Vital signs are stable upon arrival. Patient in no acute distress. Declined pain or nausea medicine at this time. Cbc with blood cell count of 14.6. Neutrophil predominance. No bandemia. CMP unremarkable. Normal LFTs and lipase. UA is clear. Pelvic ultrasound was also obtained and showing small uterine fibroid, no evidence of torsion. CT of the abdomen/pelvis was obtained and showing findings consistent with acute appendicitis. No perforation or abscess. Consistent with clinical picture. Started on zosyn. Discussed lab and imaging findings with Dr. Vides, general surgery, recommended admission under his service, continue abx, will see patient in the am and determine surgical vs nonsurgical management. Patient in agreement with plan. PRN pain meds ordered. This visit was performed by both a physician and an APC. I performed all aspects of the MDM as documented. <Rolando Hauser MD - Last Filed: 03/01/25 18:30> Medical Records Attestation: I reviewed the patient's medical records. <Antonietta Carty PA-C - Last Filed: 03/01/25 17:29> Lab Data Attestation: I reviewed the patient's lab results. <Antonietta Carty PA-C - Last Filed: 03/01/25 17:29> Result diagrams: 03/01/25 14:31 03/01/25 14:31 <Antonietta Carty PA-C - Last Filed: 03/01/25 17:29> Labs: Lab Results 03/01/25 03/01/25 Range/Units 14:30 14:31 WBC 14.6 H (4.5-10.0) K/mm3 RBC 4.94 (4.2-5.4) M/mm3 Hgb 14.2 (12.0-15.0) g/dL Hct 44.1 (37.0-47.0) % MCV 89.3 (80-100) fl MCH 28.7 (26-34) pg MCHC 32.2 (32-36) g/dl RDW 13.4 (11.5-14.5) % Plt Count 385 H (150-375) k/mm3 MPV 10.1 (7.4-10.4) fl Immature Gran % (Auto) 0.5 (0-0.5) % Neut % (Auto) 79.4 H (45.5-73.1) % Lymph % (Auto) 13.0 L (18.3-44.2) % [place] % (Auto) 4.9 (2.6-8.5) % Eos % (Auto) 1.9 (0-4.4) % Baso % (Auto) 0.3 (0.2-1.2) % Lymph # (Auto) 1.89 (0.9-3.2) K/mm3 [place] # (Auto) 0.7 H (0.1-0.6) K/mm3 Eos # (Auto) 0.3 (0-0.3) K/mm3 Baso # (Auto) 0.1 (0.0-0.1) K/mm3 Abs Immat Gran (auto) 0.07 H (0.00-0.031) K/mm3 Absolute Neuts (auto) 11.6 H (1.3-6.7) K/mm3 Absolute Nucleated RBC 0.000 (0.0-0.012) K/mm3 Nucleated RBC % 0.0 (0.0-0.2) % Sodium 136 L (137-145) mmol/L Potassium 3.9 (3.4-5.0) mmol/L Chloride 102 (98-107) mmol/L Carbon Dioxide 26 (22-30) mmol/L Anion Gap 8 (4-12) mmol/L BUN 10 (7-17) mg/dL Creatinine 0.64 L (0.7-1.0) mg/dL Estim Creat Clear Calc 151 ml/min Estimated GFR > 60 (59 - ) Glucose 108 (65-110) mg/dL Calcium 9.2 (8.4-10.2) mg/dL Total Bilirubin 0.4 (0.2-1.3) mg/dL AST 25 (14-36) U/L ALT 41 H (6-35) U/L Alkaline Phosphatase 73 (38-126) U/L Total Protein 7.7 (6.3-8.2) g/dL Albumin 4.3 (3.5-5.1) g/dL Lipase 70 (23-300) U/L Urine Color Yellow (Yellow) Urine Appearance Clear (Clear) Urine pH 6.0 (5.0-9.0) Ur Specific [place] 1.020 (1.001-1.035) Urine Protein Negative (Negative) mg/dL Urine Glucose (UA) Negative (Negative) mg/dL Urine Ketones Negative (Negative) mg/dL Ur Blood (Man) Negative (Negative) Urine Nitrate Negative (Negative) Urine Bilirubin Negative (Negative) Urine Urobilinogen 0.2 (<2.0) mg/dL Leukocyte Esterase Rfl Negative (Negative) MITCHEL/UL POC Urine HCG, Qual Negative (Negative) <Antonietta Carty PA-C - Last Filed: 03/01/25 17:29> Lab Results 03/01/25 03/01/25 Range/Units 14:30 14:31 WBC 14.6 H (4.5-10.0) K/mm3 RBC 4.94 (4.2-5.4) M/mm3 Hgb 14.2 (12.0-15.0) g/dL Hct 44.1 (37.0-47.0) % MCV 89.3 (80-100) fl MCH 28.7 (26-34) pg MCHC 32.2 (32-36) g/dl RDW 13.4 (11.5-14.5) % Plt Count 385 H (150-375) k/mm3 MPV 10.1 (7.4-10.4) fl Immature Gran % (Auto) 0.5 (0-0.5) % Neut % (Auto) 79.4 H (45.5-73.1) % Lymph % (Auto) 13.0 L (18.3-44.2) % [place] % (Auto) 4.9 (2.6-8.5) % Eos % (Auto) 1.9 (0-4.4) % Baso % (Auto) 0.3 (0.2-1.2) % Lymph # (Auto) 1.89 (0.9-3.2) K/mm3 [place] # (Auto) 0.7 H (0.1-0.6) K/mm3 Eos # (Auto) 0.3 (0-0.3) K/mm3 Baso # (Auto) 0.1 (0.0-0.1) K/mm3 Abs Immat Gran (auto) 0.07 H (0.00-0.031) K/mm3 Absolute Neuts (auto) 11.6 H (1.3-6.7) K/mm3 Absolute Nucleated RBC 0.000 (0.0-0.012) K/mm3 Nucleated RBC % 0.0 (0.0-0.2) % Sodium 136 L (137-145) mmol/L Potassium 3.9 (3.4-5.0) mmol/L Chloride 102 (98-107) mmol/L Carbon Dioxide 26 (22-30) mmol/L Anion Gap 8 (4-12) mmol/L BUN 10 (7-17) mg/dL Creatinine 0.64 L (0.7-1.0) mg/dL Estim Creat Clear Calc 151 ml/min Estimated GFR > 60 (59 - ) Glucose 108 (65-110) mg/dL Calcium 9.2 (8.4-10.2) mg/dL Total Bilirubin 0.4 (0.2-1.3) mg/dL AST 25 (14-36) U/L ALT 41 H (6-35) U/L Alkaline Phosphatase 73 (38-126) U/L Total Protein 7.7 (6.3-8.2) g/dL Albumin 4.3 (3.5-5.1) g/dL Lipase 70 (23-300) U/L Urine Color Yellow (Yellow) Urine Appearance Clear (Clear) Urine pH 6.0 (5.0-9.0) Ur Specific [place] 1.020 (1.001-1.035) Urine Protein Negative (Negative) mg/dL Urine Glucose (UA) Negative (Negative) mg/dL Urine Ketones Negative (Negative) mg/dL Ur Blood (Man) Negative (Negative) Urine Nitrate Negative (Negative) Urine Bilirubin Negative (Negative) Urine Urobilinogen 0.2 (<2.0) mg/dL Leukocyte Esterase Rfl Negative (Negative) MITCHEL/UL POC Urine HCG, Qual Negative (Negative) <Rolando Hauser MD - Last Filed: 03/01/25 18:30> Imaging Data Attestation: I personally reviewed and interpreted this imaging study as follows: < Antonietta Carty PA-C - Last Filed: 03/01/25 17:29> Radiologist's impression: ITS Impressions Pelvic/Transvag US 03/01/25 16:10 IMPRESSION: 1. Small uterine fibroid posteriorly in the myometrium measuring 3 mm. Abdomen/Pelvis CT 03/01/25 16:12 IMPRESSION: Acute appendicitis. No perforation or abscess <Antonietta Carty PA-C - Last Filed: 03/01/25 17:29> ITS Impressions Pelvic/Transvag US 03/01/25 16:10 IMPRESSION: 1. Small uterine fibroid posteriorly in the myometrium measuring 3 mm. Abdomen/Pelvis CT 03/01/25 16:12 IMPRESSION: Acute appendicitis. No perforation or abscess <Rolando Hauser MD - Last Filed: 03/01/25 18:30> Discharge Plan Discharge Clinical Impression: Acute appendicitis Qualifiers: Acute appendicitis type: with localized peritonitis Appendicitis gangrene presence: without gangrene Appendicitis perforation presence: without perforation Appendicitis abscess presence: without abscess Qualified Code(s): K 35.30 - Acute appendicitis with localized peritonitis, without perforation or gangrene <Antonietta Carty PA-C - Last Filed: 03/01/25 17:29> Patient Disposition: Still a Patient <CYNTHIA Chopra Last Filed: 03/01/25 17:29> Condition: Stable <CYNTHIA Chopra Last Filed: 03/01/25 17:29>
[2025-03-01 15:02] LABS: Alanine Aminotransferase 41 U/L (6-35); Albumin Level 4.3 g/dL (3.5-5.1); Alkaline Phosphatase 73 U/L (38-126); Anion Gap 8 mmol/L (4-12); Aspartate Amino Transferase 25 U/L (14-36); Bilirubin,Total 0.4 mg/dL (0.2-1.3); Blood Urea Nitrogen 10 mg/dL (7-17); Calcium 9.2 mg/dL (8.4-10.2); Carbon Dioxide 26 mmol/L (22-30); Chloride 102 mmol/L (98-107); Estimated CRCL calculation 151 ml/min; Estimated Glomerular Filt Rate > 60; Glucose 108 mg/dL (65-110); Lipase 70 U/L (23-300); Potassium 3.9 mmol/L (3.4-5.0); Sodium 136 mmol/L (137-145); Total Protein 7.7 g/dL (6.3-8.2)
[2025-03-01] MEDS: ONDANSETRON INJ 4 MG/2 ML VIAL IV PUSH (16:56)
[2025-03-01] MEDS: HYDROmorphone HCL INJ (*CRX) 1 MG/ML SYR 0.5 MG IV PUSH ×3 (16:56→23:02)
[2025-03-01] MEDS: PIPERACILLIN/TAZOBACTAM SOD 3.375 GM in SODIUM CHLORIDE 0.9% IV 50 ML 100 ML IVPB ×2 (16:56→23:04)
[2025-03-01 17:03] VITALS: BP 160/98; PULSE 69; RESP 16; O2SAT 97
[2025-03-01] MEDS: SODIUM CHLORIDE 0.9% IV 1,000 ML 125 ML IV CONT (17:47)
[2025-03-01 18:16] VITALS: BP 139/93; PULSE 77; TEMP 35.9; O2SAT 99
[2025-03-01 18:27] VITALS: BMI 59.6
--- NOTE | 2025-03-01 18:30 | PC.NURSE ---
This patient, Andra Bhatia, was admitted to [facility] Surg Room 327-01. Patient/family oriented to hospital policies and general routines including ID bracelet, bed and alarms, visiting hours, pain management, procedures, bathroom and other care routines, personal items, smoking policy, room service/diet, and visiting hours. Information on how to activate the Rapid Response Team has been discussed. Patient/Family are encouraged to report perceived risks to care and to ask questions if they do not understand what they are told or what they should do.
[2025-03-01 21:27] VITALS: BP 144/90; PULSE 86; RESP 17; TEMP 37.1; O2SAT 99
[2025-03-02] VITALS (13 sets, daily range): BP systolic 124–149; BP diastolic 66–90; PULSE 77–108; RESP 14–24; TEMP 35.7–37.9; O2SAT 92–100
[2025-03-02] MEDS: SODIUM CHLORIDE 0.9% IV 1,000 ML 125 ML IV CONT (02:02)
[2025-03-02] MEDS: HYDROmorphone HCL INJ (*CRX) 1 MG/ML SYR 0.5 MG IV PUSH ×2 (03:08→07:06)
[2025-03-02] MEDS: PIPERACILLIN/TAZOBACTAM SOD 3.375 GM in SODIUM CHLORIDE 0.9% IV 50 ML 100 ML IVPB ×3 (05:52→17:13)
--- NOTE | 2025-03-02 08:25 | P.HP_ITS ---
H&P: HPI History of Present Illness Date/Time: 03/02/25 08:25 Chief Complaint: Right lower quadrant abdominal pain Narrative: This is a 34-year-old woman who presented to the emergency department yesterday with right lower quadrant abdominal pain. The pain started when she 1st woke up yesterday morning. The pain was located on the right side from the start. She was also experiencing some nausea and vomiting. She denied any fevers or chills. She has not had much bowel function since the symptoms started but denies any change in bowel habits leading up to this. She has never experienced symptoms like this in the past. In the emergency department she was noted to have an elevated white blood count and tenderness in the right lower quadrant. CT showed evidence of acute appendicitis. She was started on Zosyn and placed in observation for further treatment. Review of Systems Review of Systems: All systems reviewed & are unremarkable except as noted in HPI and below Eyes: Eyes: Denies change in vision ENT: Denies hearing loss, Denies neck pain and Denies sore throat Cardiovascular: Cardiovascular: Denies chest pain and Denies dyspnea Respiratory: Respiratory: Denies cough, Denies dyspnea and Denies wheezing Gastrointestinal: Gastrointestinal: Reports as per HPI Genitourinary: Genitourinary: Denies hematuria and Denies dysuria Musculoskeletal: Musculoskeletal: Denies arthralgias, Denies joint swelling and Denies neck pain Allergic/Immunologic: Allergic/Immunologic: Denies wheezing [facility] Past Medical History Medical History (Updated 03/02/25 @ 08:29 by Deepak Vides DO) Morbid obesity Surgical History Surgical History (Updated 03/02/25 @ 08:28 by Deepak Vides DO) History of bilateral breast reduction surgery History of carpal tunnel release of both wrists Family History Family History (Updated 03/01/25 @ 18:33 by Adrianna Kurtz RN) Mother Family history of seizure disorder Depression Family history of malignant neoplasm of cervix Grandparent Diabetes mellitus Heart problem Social History Social History Smoking status: Never smoker Second hand tobacco smoke exposure: Yes Alcohol intake: never Substance use: never Lack of Transportation: No Lack of Food: Never True Current Housing: I Have Housing Concerned About Future Housing: No Difficulty Paying Gas/Electric Bills: No Difficulty Paying for Meds: No Currently Unemployed: No Education: Associate Degree Difficulty w/ Childcare or Family Care: No Living arrangements: with family Spiritual care concerns: No Meds Home Medications and Allergies Home Medications ?Medication ?Instructions ?Recorded ?Confirmed ?Type semaglutide (weight loss) 2.4 2.4 mg subcut [id number] 03/01/25 History mg/0.75 mL subcutaneous pen injector Allergies Allergy/AdvReac Type Severity Reaction Status Date / Time No Known Allergies Allergy Verified 03/01/25 18:48 Vital Signs Vital Signs - 24 hr 03/01/25 13:52 03/01/25 17:03 03/01/25 18:16 Temperature 96.8 F L 96.7 F L Pulse Rate 84 69 77 Respiratory Rate 20 16 Blood Pressure 153/94 H 160/98 H 139/93 H Pulse Oximetry 99 97 99 Oxygen Delivery 03/01/25 19:53 03/01/25 21:27 03/02/25 06:00 Temperature 98.7 F 98.2 F Pulse Rate 86 84 Respiratory Rate 17 16 Blood Pressure 144/90 H 141/81 H Pulse Oximetry 99 98 Oxygen Delivery Room Air Exam Const: General: alert; No acute distress Orientation/consciousness: patient oriented x3 Limitations: no limitations HENMT: Head: normocephalic and atraumatic Ears: hearing grossly normal bilaterally Face/Nose/Sinus: Normal external nose present and Normal nares present Mouth: Yes Normal oral and palatal mucosa present and Yes moist mucous membranes Eyes: General: appearance normal, both eyes and all related structures Conjunctivae: conjunctivae normal Sclera: sclerae normal Pupils: Equal, round and reactive pupils present EOM: EOMs intact bilaterally Neck: Neck: normal visual inspection, full ROM, no lymphadenopathy, supple and no JVD Lymphatic: no lymphadenopathy noted Chest: Chest palpation & inspection: normal inspection of the chest Resp: Effort & Inspection: normal respiratory effort and able to speak in complete sentences Auscultation: clear to auscultation bilaterally Percussion: percussion normal Cardio: Jugular venous distension: no JVD Rate: regular rate Rhythm: regular rhythm Heart sounds: S1 normal heart sound present and S2 normal heart sound present Peripheral pulses: Peripheral pulses 2+ throughout GI: Inspection: normal to inspection, non-distended and obesity GI Palp: Yes Soft to palpation, Yes Tenderness to palpation present (GI) (Right lower quadrant), Yes Guarding due to palpation present (GI) (Right lower quadrant) and No Rebound tenderness present Auscultation: normal bowel sounds : General: Yes no CVA tenderness Back/Spine/Pelvis: Back: no CVA tenderness Skin: General skin exam: normal color and dry skin Neuro: General: patient oriented x3, gait normal, moves all extremities, no focal motor deficits and CN's II-XI intact bilaterally Cranial nerves: Yes Equal, round and reactive pupils present Speech: normal speech Extrem: General: normal to inspection and capillary refill normal H&P: Results Labs Labs: Short CBC 03/01/25 Range/Units 14:31 WBC 14.6 H (4.5-10.0) K/mm3 Hgb 14.2 (12.0-15.0) g/dL Hct 44.1 (37.0-47.0) % Plt Count 385 H (150-375) k/mm3 BMP 03/01/25 14:31 Sodium 136 L Potassium 3.9 Chloride 102 Carbon Dioxide 26 BUN 10 Creatinine 0.64 L Glucose 108 Calcium 9.2 Liver Function 03/01/25 Range/Units 14:31 Total Bilirubin 0.4 (0.2-1.3) mg/dL AST 25 (14-36) U/L ALT 41 H (6-35) U/L Alkaline Phosphatase 73 (38-126) U/L Albumin 4.3 (3.5-5.1) g/dL Urine 03/01/25 Range/Units 14:31 Urine Color Yellow (Yellow) Urine Appearance Clear (Clear) Urine pH 6.0 (5.0-9.0) Ur Specific [place] 1.020 (1.001-1.035) Urine Protein Negative (Negative) mg/dL Urine Glucose (UA) Negative (Negative) mg/dL Imaging CT scan - abdomen: Radiologist's impression: ITS Impressions Pelvic/Transvag US 03/01/25 16:10 IMPRESSION: 1. Small uterine fibroid posteriorly in the myometrium measuring 3 mm. Abdomen/Pelvis CT 03/01/25 16:12 IMPRESSION: Acute appendicitis. No perforation or abscess Assessment and Plan Assessment and plan (1) Acute appendicitis: Qualifiers: Acute appendicitis type: with localized peritonitis Appendicitis abscess presence: without abscess Appendicitis gangrene presence: without gangrene Appendicitis perforation presence: without perforation Qualified Code(s): K35.30 - Acute appendicitis with localized peritonitis, without perforation or gangrene Code(s): K35.80 - Unspecified acute appendicitis Status: Acute Assessment and Plan: * I have reviewed the CT and discussed the findings with the patient. She has evidence of acute appendicitis and has been started on Zosyn. I discussed medical and surgical treatment options. I discussed that there is a 20-25% chance of recurrent appendicitis with antibiotics alone. I also discussed that surgery is not without risks and there is a 5-10% chance of surgical complications. Patient voiced her understanding and would like to proceed with surgery. I have recommended laparoscopic appendectomy, possible open. I discussed the procedure, risks, benefits, and alternatives. Questions were answered. (2) Morbid obesity: Code(s): E66.01 - Morbid (severe) obesity due to excess calories Status: Acute Hospitalist MIPS Medication Reconciliation I have utilized all available resources to obtain, update and review the patients current medications (includes all prescriptions, OTC, herbals, cannabis, and nutritional supplements).: Yes
--- NOTE | 2025-03-02 08:31 | WPDHPUPDATE1 ---
History and Physical Update Update Date/Time: 03/02/25 08:31 History and Physical has been reviewed, including an updated exam of the patient. There are NO changes in the patient's condition. Risks, benefits, and alternatives have been discussed and questions answered. Patient agrees to proceed with procedure.
[2025-03-02] MEDS: ACETAMINOPHEN 500 MG TABLET 1000 MG PO (09:29)
[2025-03-02] MEDS: KETOROLAC 15 MG/ML VIAL (*BKC) IV PUSH (09:30)
--- NOTE | 2025-03-02 09:37 | P.PNAN_ITS ---
Anes - Initial Pre Proc Eval Procedure: Operation Date: 03/02/25 09:30 Proposed Procedures p Laparoscopic Appendectomy - Deepak Vides DO Date/Time: 03/02/25 09:37 Surgeon: Deepak Vides DO Pre Op Diagnosis: acute appendicitis Patient Data Age: 34 Gender: F Height: 1.57 m Weight: 148 kg Last Vital Signs Temp 37.9 C H 03/02/25 09:15 Pulse 97 03/02/25 09:15 Resp 18 03/02/25 09:15 BP 124/72 03/02/25 09:15 Pulse Ox 98 03/02/25 09:15 O2 Del Method Room Air 03/02/25 09:15 Allergies Allergy/AdvReac Type Severity Reaction Status Date / Time No Known Allergies Allergy Verified 03/01/25 18:48 Home Medications ?Medication ?Instructions ?Recorded ?Confirmed ?Type semaglutide (weight loss) 2.4 2.4 mg subcut [id number] 03/01/25 History mg/0.75 mL subcutaneous pen injector Laboratory Tests 03/01/25 03/01/25 14:30 14:31 WBC 14.6 H K/mm3 (4.5-10.0) RBC 4.94 M/mm3 (4.2-5.4) Hgb 14.2 g/dL (12.0-15.0) Hct 44.1 % (37.0-47.0) MCV 89.3 fl (80-100) MCH 28.7 pg (26-34) MCHC 32.2 g/dl (32-36) RDW 13.4 % (11.5-14.5) Plt Count 385 H k/mm3 (150-375) MPV 10.1 fl (7.4-10.4) Immature Gran % (Auto) 0.5 % (0-0.5) Neut % (Auto) 79.4 H % (45.5-73.1) Lymph % (Auto) 13.0 L % (18.3-44.2) [place] % (Auto) 4.9 % (2.6-8.5) Eos % (Auto) 1.9 % (0-4.4) Baso % (Auto) 0.3 % (0.2-1.2) Lymph # (Auto) 1.89 K/mm3 (0.9-3.2) [place] # (Auto) 0.7 H K/mm3 (0.1-0.6) Eos # (Auto) 0.3 K/mm3 (0-0.3) Baso # (Auto) 0.1 K/mm3 (0.0-0.1) Abs Immat Gran (auto) 0.07 H K/mm3 (0.00-0.031) Absolute Neuts (auto) 11.6 H K/mm3 (1.3-6.7) Absolute Nucleated RBC 0.000 K/mm3 (0.0-0.012) Nucleated RBC % 0.0 % (0.0-0.2) Sodium 136 L mmol/L (137-145) Potassium 3.9 mmol/L (3.4-5.0) Chloride 102 mmol/L (98-107) Carbon Dioxide 26 mmol/L (22-30) Anion Gap 8 mmol/L (4-12) BUN 10 mg/dL (7-17) Creatinine 0.64 L mg/dL (0.7-1.0) Estim Creat Clear Calc 151 ml/min Estimated GFR > 60 (59 - ) Glucose 108 mg/dL (65-110) Calcium 9.2 mg/dL (8.4-10.2) Total Bilirubin 0.4 mg/dL (0.2-1.3) AST 25 U/L (14-36) ALT 41 H U/L (6-35) Alkaline Phosphatase 73 U/L (38-126) Total Protein 7.7 g/dL (6.3-8.2) Albumin 4.3 g/dL (3.5-5.1) Lipase 70 U/L (23-300) Urine Color Yellow (Yellow) Urine Appearance Clear (Clear) Urine pH 6.0 (5.0-9.0) Ur Specific [place] 1.020 (1.001-1.035) Urine Protein Negative mg/dL (Negative) Urine Glucose (UA) Negative mg/dL (Negative) Urine Ketones Negative mg/dL (Negative) Ur Blood (Man) Negative (Negative) Urine Nitrate Negative (Negative) Urine Bilirubin Negative (Negative) Urine Urobilinogen 0.2 mg/dL (<2.0) Leukocyte Esterase Rfl Negative MITCHEL/UL (Negative) POC Urine HCG, Qual Negative (Negative) HCG: negative Patient hx anesthesia problems: none Family hx anesthesia problems: none Results Review: All pre-operative results and documents have been reviewed as part of the pre- operative evaluation. [facility] Past Medical History Medical History Morbid obesity Surgical History Surgical History History of bilateral breast reduction surgery History of carpal tunnel release of both wrists Family History Family History Mother Family history of seizure disorder Depression Family history of malignant neoplasm of cervix Grandparent Diabetes mellitus Heart problem Social History Social History Smoking status: Never smoker Second hand tobacco smoke exposure: Yes Alcohol intake: never Substance use: never Lack of Transportation: No Lack of Food: Never True Current Housing: I Have Housing Concerned About Future Housing: No Difficulty Paying Gas/Electric Bills: No Difficulty Paying for Meds: No Currently Unemployed: No Education: Associate Degree Difficulty w/ Childcare or Family Care: No Living arrangements: with family Spiritual care concerns: No Anes - Eval Final PreProcedure Day of Procedure 03/02/25 09:37 Patient weight: super morbidly obese Heart: regular rate and rhythm Lungs: decreased breath sounds Airway: Mallampati scale class 1 Neurological: alert and oriented Last oral intake: >/= 8 hours ASA classification: III Emergent: no Anesthetic plan: proceed Anesthesia type and monitoring: general ETT and standard monitoring Results Review: All pre-operative results and documents have been reviewed as part of the pre- operative evaluation. Informed Consent: The patient's anesthetic plan and its attendant risks and benefits were discussed with the patient/family/POA. Questions were solicited and answers provided to the satisfaction of the patient/family/POA.
[2025-03-02] MEDS: BUPIVACAINE/EPINEPHRINE 0.5% 50 ML VIAL 30 ML INFILTRATE (09:43)
--- NOTE | 2025-03-02 09:45 | WPDANESEPPF ---
Anes - Initial Pre Proc Eval Procedure: Operation Date: 03/02/25 09:30 Proposed Procedures p Laparoscopic Appendectomy - Deepak Vides DO Date/Time: 03/02/25 09:45 Surgeon: Deepak Vides DO Pre Op Diagnosis: acute appendicitis Patient Data Age: 34 Gender: F Height: 1.57 m Weight: 148 kg Last Vital Signs Temp 37.9 C H 03/02/25 09:15 Pulse 97 03/02/25 09:15 Resp 18 03/02/25 09:15 BP 124/72 03/02/25 09:15 Pulse Ox 98 03/02/25 09:15 O2 Del Method Room Air 03/02/25 09:15 Allergies Allergy/AdvReac Type Severity Reaction Status Date / Time No Known Allergies Allergy Verified 03/01/25 18:48 Home Medications ?Medication ?Instructions ?Recorded ?Confirmed ?Type semaglutide (weight loss) 2.4 2.4 mg subcut [id number] 03/01/25 03/01/25 History mg/0.75 mL subcutaneous pen injector Laboratory Tests 03/01/25 03/01/25 14:30 14:31 WBC 14.6 H K/mm3 (4.5-10.0) RBC 4.94 M/mm3 (4.2-5.4) Hgb 14.2 g/dL (12.0-15.0) Hct 44.1 % (37.0-47.0) MCV 89.3 fl (80-100) MCH 28.7 pg (26-34) MCHC 32.2 g/dl (32-36) RDW 13.4 % (11.5-14.5) Plt Count 385 H k/mm3 (150-375) MPV 10.1 fl (7.4-10.4) Immature Gran % (Auto) 0.5 % (0-0.5) Neut % (Auto) 79.4 H % (45.5-73.1) Lymph % (Auto) 13.0 L % (18.3-44.2) [place] % (Auto) 4.9 % (2.6-8.5) Eos % (Auto) 1.9 % (0-4.4) Baso % (Auto) 0.3 % (0.2-1.2) Lymph # (Auto) 1.89 K/mm3 (0.9-3.2) [place] # (Auto) 0.7 H K/mm3 (0.1-0.6) Eos # (Auto) 0.3 K/mm3 (0-0.3) Baso # (Auto) 0.1 K/mm3 (0.0-0.1) Abs Immat Gran (auto) 0.07 H K/mm3 (0.00-0.031) Absolute Neuts (auto) 11.6 H K/mm3 (1.3-6.7) Absolute Nucleated RBC 0.000 K/mm3 (0.0-0.012) Nucleated RBC % 0.0 % (0.0-0.2) Sodium 136 L mmol/L (137-145) Potassium 3.9 mmol/L (3.4-5.0) Chloride 102 mmol/L (98-107) Carbon Dioxide 26 mmol/L (22-30) Anion Gap 8 mmol/L (4-12) BUN 10 mg/dL (7-17) Creatinine 0.64 L mg/dL (0.7-1.0) Estim Creat Clear Calc 151 ml/min Estimated GFR > 60 (59 - ) Glucose 108 mg/dL (65-110) Calcium 9.2 mg/dL (8.4-10.2) Total Bilirubin 0.4 mg/dL (0.2-1.3) AST 25 U/L (14-36) ALT 41 H U/L (6-35) Alkaline Phosphatase 73 U/L (38-126) Total Protein 7.7 g/dL (6.3-8.2) Albumin 4.3 g/dL (3.5-5.1) Lipase 70 U/L (23-300) Urine Color Yellow (Yellow) Urine Appearance Clear (Clear) Urine pH 6.0 (5.0-9.0) Ur Specific [place] 1.020 (1.001-1.035) Urine Protein Negative mg/dL (Negative) Urine Glucose (UA) Negative mg/dL (Negative) Urine Ketones Negative mg/dL (Negative) Ur Blood (Man) Negative (Negative) Urine Nitrate Negative (Negative) Urine Bilirubin Negative (Negative) Urine Urobilinogen 0.2 mg/dL (<2.0) Leukocyte Esterase Rfl Negative MITCHEL/UL (Negative) POC Urine HCG, Qual Negative (Negative) HCG: negative Patient hx anesthesia problems: none Family hx anesthesia problems: none Results Review: All pre-operative results and documents have been reviewed as part of the pre-operative evaluation. [facility] Past Medical History Medical History Morbid obesity Surgical History Surgical History History of bilateral breast reduction surgery History of carpal tunnel release of both wrists Family History Family History Mother Family history of seizure disorder Depression Family history of malignant neoplasm of cervix Grandparent Diabetes mellitus Heart problem Social History Social History Smoking status: Never smoker Second hand tobacco smoke exposure: Yes Alcohol intake: never Substance use: never Lack of Transportation: No Lack of Food: Never True Current Housing: I Have Housing Concerned About Future Housing: No Difficulty Paying Gas/Electric Bills: No Difficulty Paying for Meds: No Currently Unemployed: No Education: Associate Degree Difficulty w/ Childcare or Family Care: No Living arrangements: with family Spiritual care concerns: No Anes - Eval Final PreProcedure Day of Procedure 03/02/25 09:45 Patient weight: super morbidly obese Heart: regular rate and rhythm Lungs: clear to auscultation Airway: Mallampati scale class II Neurological: alert and oriented Last oral intake: >/= 8 hours ASA classification: III Emergent: no Anesthetic plan: proceed Anesthesia type and monitoring: general ETT and standard monitoring Results Review: All pre-operative results and documents have been reviewed as part of the pre-operative evaluation. Informed Consent: The patient's anesthetic plan and its attendant risks and benefits were discussed with the patient/family/POA. Questions were solicited and answers provided to the satisfaction of the patient/family/POA.
--- NOTE | 2025-03-02 10:16 | S_PTH ---
PATIENT: Andra Bhatia LOC: [id number] U#:[id number] AGE/SX: 34/F ROOM: 327 RE03/05/[address]: Deepak Vides DO : 1990 BED: 01 DIS: 03/05/2025 SPEC #: [id number] RECD: 03/02/25 10:32 STATUS: CHARI REAna Lilia #: [id number] CECE: 03/02/25 10:[address]: Deepak Vides DEPT: [facility] Surgical RECD BY: Mao Perry ENTERED: 03/02/25 10:32 SP TYPE: Surgical OTHR DR: ABI HERNÁNDEZ, ONCOLOGY PHARMACIST Tissues: A - Appendix Procedures: Hematoxylin and Eosin Stain Gross and Microscopic Level 3
[2025-03-02] MEDS: LACTATED RINGERS 1,000 ML 30 ML IV CONT ×2 (10:53)
--- NOTE | 2025-03-02 11:01 | P.OP_ITS ---
Procedure Note - Detailed Date of Procedure 03/02/25 Pre-op Diagnosis acute appendicitis Post-op Diagnosis Other (Acute perforated appendicitis with appendicolith) Procedure Performed 1. Laparoscopic appendectomy 2. Laparoscopic drainage of intra-abdominal abscess Surgeon Deepak Vides, DO Anesthesia General and Local (0.5% bupivicaine with epinephrine) Indications this is a 34-year-old woman who presented to the emergency department on 03/01/2025 with right lower quadrant abdominal pain. She was also experiencing nausea and vomiting. She was noted to have an elevated white blood count and CT showed evidence of acute appendicitis. She was placed in observation for further treatment. Discussions were made with the patient about treatment options and decision was made to proceed with laparoscopic appendectomy, possible open. Findings Laparoscopic appendectomy was performed. The appendix appeared to be in a retrocecal location and had several lateral peritoneal attachments. Upon dissecting the lateral attachments, it was identified that the appendix was perforated was draining some purulent fluid. There appeared to be a small abscess developing in this location. The abscess was drained with a suction ball points inspector. The base of the appendix appeared healthy and viable. The appendix was removed and sent to the lab for pathology. A 15 round Cory drain was placed along the area where the appendix was lying. Description of Procedure Procedure as well as risks, benefits, and alternatives were explained to the patient. The patient agreed to proceed. Written consent was obtained and placed in chart prior to procedure. The patient was brought back to surgical suite. She was placed supine on operating table. Time-out was done to confirm the patient and procedure. The patient was then intubated by the Anesthesia Department. her abdomen was prepped and draped in sterile fashion using chlorhexidine prep. A 5 mm incision was made just to the left of the patient's umbilicus and a 5 mm Optiview trocar was advanced through the abdominal layers under direct visualization. Once inside the peritoneal cavity, carbon dioxide insufflation was used to create a pneumoperitoneum. The camera was inserted and the abdomen was inspected. No immediate abnormalities were identified. The patient was then placed in slight Trendelenburg position and rotated to the left. A 5 mm incision was made in the suprapubic region in midline and a 5 mm trocar was inserted under direct visualization. A 12 mm incision was made in the left lower quadrant and a 12 mm trocar was inserted under direct visualization. The right lower quadrant was carefully inspected. The cecum was identified and then this was traced back to the appendix. The appendix was identified and grasped at the mesoappendix and lifted anteriorly. Careful blunt dissection was carried out at the base of the appendix through the mesoappendix using a [place] grasper. An Endo-CAMACHO 45 mm blue load stapler was then advanced across the base of the appendix and clamped and fired. A white reload was then clamped across the mesoappendix and fired. This freed up our appendix completely. It was then placed in an EndoCatch bag and removed through the left lower quadrant port. The staple lines were then inspected. Hemostasis appeared adequate and the staple lines appeared secure. The area was then irrigated with sterile saline. The pelvis was then carefully inspected and irrigated with sterile saline as well and the remainder of the abdomen was carefully inspected. a 15 round Cory drain was placed through the suprapubic port and placed along the right pericolic gutter. Drain was secured in place using a 3-0 Ethilon drain stitch. The patient was then flattened out in bed. One final inspection was made around the abdominal cavity and no other abnormalities were seen. The left lower quadrant port was removed and a Scott-Anuja cone was used to approximate the fascia with an 0 Vicryl simple interrupted suture. The remaining ports were then removed under direct visualization. The camera was removed and the pneumoperitoneum was released. 0.5% bupivacaine with epinephrine was infiltrated locally around each of the incisions. The skin of the incisions was then approximated using 4-0 Monocryl subcuticular suture and Exofin glue was applied on top. The patient was then awakened from anesthesia, extubated, and transferred to Recovery. Estimated Blood Loss 40 Urine Output 300 Drains Yes (15 round Cory drain) Pathology Yes (Appendix) Complications No immediate complications Condition Stable Disposition Floor [facility] Billing Surgery - Charge Forward: Surgery Billing
[2025-03-02] MEDS: fentaNYL CITRATE INJ (*CRX) 100 MCG/2 ML VIAL 25 MCG IV PUSH ×5 (11:15→11:58)
[2025-03-02] MEDS: ONDANSETRON INJ 4 MG/2 ML VIAL IV PUSH (12:01)
[2025-03-02] MEDS: LACTATED RINGERS 1,000 ML 100 ML IV CONT (13:04)
[2025-03-02] MEDS: HYDROcodone/acetaminophen (*CRX) 10-325 MG TABLET 1 TAB PO ×2 (14:36→19:39)
[2025-03-03] VITALS (9 sets, daily range): BP systolic 113–131; BP diastolic 49–81; PULSE 92–118; RESP 16–18; TEMP 35.7–37.6; O2SAT 90–97
[2025-03-03] MEDS: HYDROcodone/acetaminophen (*CRX) 10-325 MG TABLET 1 TAB PO ×4 (00:08→21:07)
[2025-03-03] MEDS: HYDROmorphone HCL INJ (*CRX) 1 MG/ML SYR IV PUSH ×2 (00:14→10:15)
--- NOTE | 2025-03-03 03:13 | PC.NURSE ---
pt declined Ice pack at this time
[2025-03-03 06:22] LABS: Hematocrit 38.0 % (37.0-47.0); Hemoglobin 11.6 g/dL (12.0-15.0); Mean Corpuscular HGB Conc 30.5 g/dl (32-36); Mean Corpuscular Hemoglobin 27.9 pg (26-34); Mean Corpuscular Volume 91.3 fl (80-100); Platelet Count Result 277 k/mm3 (150-375); Red Blood Count 4.16 M/mm3 (4.2-5.4); White Blood Count 18.1 K/mm3 (4.5-10.0)
[2025-03-03] MEDS: PIPERACILLIN/TAZOBACTAM SOD 3.375 GM in SODIUM CHLORIDE 0.9% IV 50 ML 100 ML IVPB ×4 (06:25→17:11)
[2025-03-03 06:43] LABS: Anion Gap 6 mmol/L (4-12); Blood Urea Nitrogen 7 mg/dL (7-17); Calcium 8.1 mg/dL (8.4-10.2); Carbon Dioxide 25 mmol/L (22-30); Chloride 102 mmol/L (98-107); Estimated CRCL calculation 148 ml/min; Estimated Glomerular Filt Rate > 60; Glucose 105 mg/dL (65-110); Potassium 3.6 mmol/L (3.4-5.0); Sodium 133 mmol/L (137-145)
[2025-03-03] MEDS: HYDROcodone/acetaminophen (*CRX) 5-325 MG TABLET 1 TAB PO ×2 (08:08→17:10)
[2025-03-03] MEDS: ENOXAPARIN 40 MG/0.4 ML SYRINGE SUB-Q (08:08)
--- NOTE | 2025-03-03 09:43 | P.PNGS_ITS ---
Progress Note: A&P Assessment and Plan (1) Acute appendicitis: Qualifiers: Acute appendicitis type: with localized peritonitis Appendicitis abscess presence: without abscess Appendicitis gangrene presence: without gangrene Appendicitis perforation presence: without perforation Qualified Code(s): K35.30 - Acute appendicitis with localized peritonitis, without perforation or gangrene Code(s): K35.80 - Unspecified acute appendicitis Status: Acute Assessment and Plan: * S/p laparoscopic appendectomy and drainage of intraabdominal abscess for perforated appendicitis. Patient had issues with pain control last night, but improved this morning. Will transition to oral analgesics. * Advance diet as tolerated * Continue IV Zosyn * Once the patient is tolerating a solid diet and pain is controlled on oral analgesics, then she could discharge home on oral antibiotics later today or tomorrow depending on how she progresses. Will plan to remove her MAYELIN drain prior to discharge. (2) Morbid obesity: Code(s): E66.01 - Morbid (severe) obesity due to excess calories Status: Acute Plan I have discussed the patient's case and plan of care with Dr. Vides. Subjective Subjective Date/Time Seen: 03/03/25 09:43 Post Op day: 1 (Laparoscopic appendectomy, Laparoscopic drainage of intra- abdominal abscess) Patient reports: no new complaints, tolerating liquids well (clear liquids without nausea or vomiting. ), voiding w/o difficulty and afebrile (since 9am yesterday) Interval history: Patient having some lower abdominal pain and reports the drain site is very sore, but tolerable. She has been walking to the bathroom and able to tolerate activity. She did have some uncontrolled pain around midnight last night and required Dilaudid IV x 1. Her pain is better controlled this morning. Review of Systems Review of Systems: All systems reviewed & are unremarkable except as noted in HPI and below Exam Const: General: no acute distress Nutritional Appearance: obese morbidly obese GI: Inspection: non-distended and incision (incisions dry and intact) GI Palp: Yes Soft to palpation, Yes Tenderness to palpation present (GI) (mild tenderness near incisions in the LLQ, LUQ), No Guarding due to palpation present (GI) and No Rebound tenderness present Auscultation: Hypoactive bowel sounds present Other: MAYELIN drain with scant serosanguineous drainage Objective Data Vital Signs Vital Signs: Vital Signs - 24 hr 03/02/25 10:53 03/02/25 11:05 03/02/25 11:20 Temperature 97.9 F Pulse Rate 108 H 99 85 Respiratory Rate 24 H 18 20 Blood Pressure 146/77 H 147/90 H 142/71 H Pulse Oximetry 99 100 98 Oxygen Delivery Simple Face Mask Simple Face Mask Simple Face Mask Oxygen Flow Rate 8 8 8 03/02/25 11:35 03/02/25 11:50 03/02/25 12:05 Temperature Pulse Rate 91 97 77 Respiratory Rate 18 20 18 Blood Pressure 149/74 H 146/74 H 135/66 Pulse Oximetry 95 94 92 Oxygen Delivery Room Air Room Air Room Air Oxygen Flow Rate 03/02/25 12:35 03/02/25 12:50 03/02/25 13:20 Temperature 96.4 F L 96.2 F L 96.9 F L Pulse Rate 82 91 94 Respiratory Rate 16 16 18 Blood Pressure 135/69 138/86 127/78 Pulse Oximetry 95 95 97 Oxygen Delivery Oxygen Flow Rate 03/02/25 14:58 03/02/25 20:00 03/02/25 20:50 Temperature 97.4 F L 97.7 F Pulse Rate 91 100 Respiratory Rate 16 14 Blood Pressure 144/86 H 133/81 Pulse Oximetry 95 95 Oxygen Delivery Room Air Oxygen Flow Rate 03/03/25 01:20 03/03/25 06:51 03/03/25 07:51 Temperature 97.5 F L 97.6 F 96.8 F L Pulse Rate 92 100 107 H Respiratory Rate 16 16 18 Blood Pressure 122/72 113/79 131/80 Pulse Oximetry 97 95 96 Oxygen Delivery Oxygen Flow Rate Intake/Output Intake/Output: Intake & Output 02/28/25 03/01/25 03/02/25 03/03/25 23:59 23:59 23:59 23:59 Intake Total 100 2268 640 Output Total 300 30 Balance 100 1968 610 Meds/Results Medications: Active Medications Generic Name Dose Route Start Last Admin Trade Name Freq PRN Reason Stop Dose Admin Acetaminophen 650 mg 03/01/25 16:43 Acetaminophen 325 Mg Tablet PO Q4H PRN Mild Pain (1-3) or Fever Hydrocodone Bitart/Acetaminophen 1 tab 03/02/25 12:20 03/03/25 03:56 Hydrocodone/Acetaminophen (*Crx) 10-325 Mg Tablet PO 1 tab Q4H PRN Administration Pain Rated 7-10 Hydrocodone Bitart/Acetaminophen 1 tab 03/02/25 12:20 03/03/25 08:08 Hydrocodone/Acetaminophen (*Crx) 5-325 Mg Tablet PO 1 tab Q4H PRN Administration Pain Rated 4-6 Dextrose 12.5 gm 03/01/25 16:43 Dextrose 50% 25 Gm/50 Ml Syringe IV PUSH PRN PRN Hypoglycemia Protocol Enoxaparin Sodium 40 mg 03/03/25 09:00 03/03/25 08:08 Enoxaparin 40 Mg/0.4 Ml Syringe SUB-Q 40 mg DAILY THIERRY Administration Glucagon 1 mg 03/01/25 16:43 Glucagon For Inj 1 Mg Vial IM PRN PRN Hypoglycemia Protocol Glucose 15 gm 03/01/25 16:43 Glucose Oral Gel 15 Gm Of Glucse In 37.5 Gm Tube PO PRN PRN Hypoglycemia Protocol Hydromorphone HCl 1 mg 03/02/25 12:20 03/03/25 00:14 Hydromorphone Hcl Inj (*Crx) 1 Mg/Ml Syr IV PUSH 1 mg Q2H PRN Administration Breakthrough Pain Rated 7-10 or NPO Hydromorphone HCl 0.5 mg 03/02/25 12:20 Hydromorphone Hcl Inj (*Crx) 1 Mg/Ml Syr IV PUSH Q2H PRN Breakthrough Pain Rated 4-6 or NPO Piperacillin Sod/Tazobactam 50 mls @ 100 mls/hr 03/02/25 00:00 03/03/25 06:25 Sod 3.375 gm/ Sodium Chloride IVPB 100 mls/hr Q6H THIERRY Administration Dextrose 1,000 mls @ 100 mls/hr 03/01/25 16:43 Dextrose 5% 1,000 Ml IVPB PRN PRN Hypoglycemia Protocol Ibuprofen 800 mg in 200 mls @ 400 mls/hr 03/02/25 12:20 Caldolor 800 Mg/200 Ml IVPB Q6H PRN Breakthrough Pain Rated 1-3 or NPO Naloxone HCl 0.1 mg 03/02/25 12:20 Naloxone Hcl 0.4 Mg/Ml Vial IV PUSH Q2M PRN Opiate Reversal Ondansetron HCl 4 mg 03/01/25 16:43 03/02/25 12:01 Ondansetron Inj 4 Mg/2 Ml Vial IV PUSH 4 mg Q4H PRN Administration Nausea Radiology Results: ITS Impressions Pelvic/Transvag US 03/01/25 16:10 IMPRESSION: 1. Small uterine fibroid posteriorly in the myometrium measuring 3 mm. Abdomen/Pelvis CT 03/01/25 16:12 IMPRESSION: Acute appendicitis. No perforation or abscess Labs Labs: Laboratory Results - last 24 hr 03/03/25 06:09 WBC 18.1 H RBC 4.16 L Hgb 11.6 L Hct 38.0 MCV 91.3 MCH 27.9 MCHC 30.5 L RDW 14.0 Plt Count 277 MPV 9.7 Sodium 133 L Potassium 3.6 Chloride 102 Carbon Dioxide 25 Anion Gap 6 BUN 7 Creatinine 0.66 L Estim Creat Clear Calc 148 Estimated GFR > 60 Glucose 105 Calcium 8.1 L
[2025-03-03] MEDS: ACETAMINOPHEN 325 MG TABLET 650 MG PO (15:44)
[2025-03-04] MEDS: PIPERACILLIN/TAZOBACTAM SOD 3.375 GM in SODIUM CHLORIDE 0.9% IV 50 ML 100 ML IVPB ×4 (00:36→18:49)
[2025-03-04] MEDS: HYDROcodone/acetaminophen (*CRX) 5-325 MG TABLET 1 TAB PO ×2 (01:08→06:03)
[2025-03-04] MEDS: ACETAMINOPHEN 325 MG TABLET 650 MG PO ×2 (04:20→14:53)
[2025-03-04] MEDS: ONDANSETRON INJ 4 MG/2 ML VIAL IV PUSH ×2 (05:57→08:44)
[2025-03-04 06:21] VITALS: BP 118/72; PULSE 100; RESP 16; TEMP 37.2; O2SAT 95
[2025-03-04 06:23] LABS: Hematocrit 39.0 % (37.0-47.0); Hemoglobin 12.5 g/dL (12.0-15.0); Mean Corpuscular HGB Conc 32.1 g/dl (32-36); Mean Corpuscular Hemoglobin 28.8 pg (26-34); Mean Corpuscular Volume 89.9 fl (80-100); Platelet Count Result 381 k/mm3 (150-375); Red Blood Count 4.34 M/mm3 (4.2-5.4); White Blood Count 21.4 K/mm3 (4.5-10.0)
[2025-03-04] MEDS: HYDROmorphone HCL INJ (*CRX) 1 MG/ML SYR IV PUSH (08:44)
[2025-03-04] MEDS: ENOXAPARIN 40 MG/0.4 ML SYRINGE SUB-Q (08:46)
[2025-03-04] MEDS: IBUPROFEN IV 800 MG/200 ML 800 MG/200 ML BAG 400 MG IVPB (08:54)
[2025-03-04] MEDS: HYDROcodone/acetaminophen (*CRX) 10-325 MG TABLET 1 TAB PO ×3 (12:56→22:02)
--- NOTE | 2025-03-04 13:11 | P.PNGS_ITS ---
Progress Note: A&P Assessment and Plan (1) Acute appendicitis: Qualifiers: Acute appendicitis type: with localized peritonitis Appendicitis abscess presence: without abscess Appendicitis gangrene presence: without gangrene Appendicitis perforation presence: without perforation Qualified Code(s): K35.30 - Acute appendicitis with localized peritonitis, without perforation or gangrene Code(s): K35.80 - Unspecified acute appendicitis Status: Acute Assessment and Plan: * POD2 s/p laparoscopic appendectomy and drainage of intraabdominal abscess for perforated appendicitis. Still having abdominal pain and she had some nausea this morning. Discussed trying the higher dose oral analgesic for better pain control. * WBC count up to 21,000 today. Will repeat labs tomorrow. If her leukocytosis worsens, then we could consider repeat CT scan of the abdomen/pelvis tomorrow. * Continue IV Zosyn * Continue to monitor MAYELIN drain for now. (2) Morbid obesity: Code(s): E66.01 - Morbid (severe) obesity due to excess calories Status: Acute Plan I have discussed the patient's case and plan of care with Dr. Vides. Subjective Subjective Date/Time Seen: 03/04/25 13:11 Post Op day: 2 (Laparoscopic appendectomy, Laparoscopic drainage of intra- abdominal abscess) Patient reports: still having pain, flatus, no bowel movement and fever (Low- grade fever with T-max of 99.7? F yesterday) Interval history: Patient is still having pain. Reports most of her pain today is near the drain and her incision just left of the umbilicus. She reports having better pain control when she was taking the higher dose oral pain medication, but was trying to stick to the lower dose overnight. Her pain got uncontrolled by the morning and she required IV Dilaudid today. She reports having some nausea after eating solid food. She is passing flatus, but no BM yet. No vomiting, but her nausea improved after Zofran. WBC count 21,000 today. Exam Const: General: comfortable and no acute distress GI: Inspection: incision (Dry and glue intact), Pannus present and obesity GI Palp: Yes Soft to palpation, Yes Tenderness to palpation present (GI) (RLQ tenderness and incisional tenderness), No Guarding due to palpation present (GI) and No Rebound tenderness present Auscultation: normal bowel sounds Other: MAYELIN drain with scant serosanguineous drainage Extrem: General: no calf tenderness and no edema Objective Data Vital Signs Vital Signs: Vital Signs - 24 hr 03/03/25 15:44 03/03/25 16:15 03/03/25 17:08 Temperature 99.7 F H 99.7 F H 99.1 F Pulse Rate 118 H Respiratory Rate 18 Blood Pressure 126/49 L Pulse Oximetry 95 Oxygen Delivery 03/03/25 17:08 03/03/25 20:59 03/03/25 22:07 Temperature 99.1 F 98.5 F Pulse Rate 100 Respiratory Rate 16 Blood Pressure 115/81 Pulse Oximetry 97 Oxygen Delivery Room Air 03/03/25 23:50 03/04/25 06:21 03/04/25 08:46 Temperature 99.0 F Pulse Rate 100 Respiratory Rate 16 Blood Pressure 118/72 Pulse Oximetry 97 95 Oxygen Delivery Room Air Room Air Intake/Output Intake/Output: Intake & Output 03/01/25 03/02/25 03/03/25 03/04/25 23:59 23:59 23:59 23:59 Intake Total 100 2268 1030 820 Output Total 300 30 30 Balance 100 1968 1000 790 Meds/Results Medications: Active Medications Generic Name Dose Route Start Last Admin Trade Name Freq PRN Reason Stop Dose Admin Acetaminophen 650 mg 03/01/25 16:43 03/04/25 04:20 Acetaminophen 325 Mg Tablet PO 650 mg Q4H PRN Administration Mild Pain (1-3) or Fever Hydrocodone Bitart/Acetaminophen 1 tab 03/02/25 12:20 03/04/25 12:56 Hydrocodone/Acetaminophen (*Crx) 10-325 Mg Tablet PO 1 tab Q4H PRN Administration Pain Rated 7-10 Hydrocodone Bitart/Acetaminophen 1 tab 03/02/25 12:20 03/04/25 06:03 Hydrocodone/Acetaminophen (*Crx) 5-325 Mg Tablet PO 1 tab Q4H PRN Administration Pain Rated 4-6 Dextrose 12.5 gm 03/01/25 16:43 Dextrose 50% 25 Gm/50 Ml Syringe IV PUSH PRN PRN Hypoglycemia Protocol Enoxaparin Sodium 40 mg 03/03/25 09:00 03/04/25 08:46 Enoxaparin 40 Mg/0.4 Ml Syringe SUB-Q 40 mg DAILY THIERRY Administration Glucagon 1 mg 03/01/25 16:43 Glucagon For Inj 1 Mg Vial IM PRN PRN Hypoglycemia Protocol Glucose 15 gm 03/01/25 16:43 Glucose Oral Gel 15 Gm Of Glucse In 37.5 Gm Tube PO PRN PRN Hypoglycemia Protocol Hydromorphone HCl 1 mg 03/02/25 12:20 03/04/25 08:44 Hydromorphone Hcl Inj (*Crx) 1 Mg/Ml Syr IV PUSH 1 mg Q2H PRN Administration Breakthrough Pain Rated 7-10 or NPO Hydromorphone HCl 0.5 mg 03/02/25 12:20 Hydromorphone Hcl Inj (*Crx) 1 Mg/Ml Syr IV PUSH Q2H PRN Breakthrough Pain Rated 4-6 or NPO Piperacillin Sod/Tazobactam 50 mls @ 100 mls/hr 03/02/25 00:00 03/04/25 12:55 Sod 3.375 gm/ Sodium Chloride IVPB 100 mls/hr Q6H THIERRY Administration Dextrose 1,000 mls @ 100 mls/hr 03/01/25 16:43 Dextrose 5% 1,000 Ml IVPB PRN PRN Hypoglycemia Protocol Ibuprofen 800 mg in 200 mls @ 400 mls/hr 03/02/25 12:20 03/04/25 09:24 Caldolor 800 Mg/200 Ml IVPB Infused Q6H PRN Infusion Breakthrough Pain Rated 1-3 or NPO Naloxone HCl 0.1 mg 03/02/25 12:20 Naloxone Hcl 0.4 Mg/Ml Vial IV PUSH Q2M PRN Opiate Reversal Ondansetron HCl 4 mg 03/01/25 16:43 03/04/25 08:44 Ondansetron Inj 4 Mg/2 Ml Vial IV PUSH 4 mg Q4H PRN Administration Nausea Radiology Results: ITS Impressions Pelvic/Transvag US 03/01/25 16:10 IMPRESSION: 1. Small uterine fibroid posteriorly in the myometrium measuring 3 mm. Abdomen/Pelvis CT 03/01/25 16:12 IMPRESSION: Acute appendicitis. No perforation or abscess Labs Labs: Laboratory Results - last 24 hr 03/04/25 06:04 WBC 21.4 H RBC 4.34 Hgb 12.5 Hct 39.0 MCV 89.9 MCH 28.8 MCHC 32.1 RDW 13.9 Plt Count 381 H MPV 10.2
[2025-03-04 14:00] VITALS: BP 124/72; PULSE 115; RESP 20; TEMP 38.3; O2SAT 94
[2025-03-04 14:53] VITALS: TEMP 38.3
[2025-03-04 15:53] VITALS: TEMP 38.1
[2025-03-04 21:59] VITALS: BP 121/76; PULSE 113; RESP 28; TEMP 37.6; O2SAT 98
[2025-03-04 22:05] VITALS: TEMP 37.7
[2025-03-05] MEDS: PIPERACILLIN/TAZOBACTAM SOD 3.375 GM in SODIUM CHLORIDE 0.9% IV 50 ML 100 ML IVPB ×3 (00:30→13:19)
[2025-03-05] MEDS: ACETAMINOPHEN 325 MG TABLET 650 MG PO (00:36)
[2025-03-05] MEDS: HYDROcodone/acetaminophen (*CRX) 10-325 MG TABLET 1 TAB PO ×2 (02:08→13:20)
[2025-03-05] MEDS: HYDROcodone/acetaminophen (*CRX) 5-325 MG TABLET 1 TAB PO ×2 (05:18→09:07)
[2025-03-05 06:00] VITALS: BP 135/80; PULSE 109; RESP 20; TEMP 37.6; O2SAT 100
[2025-03-05 06:23] LABS: Hematocrit 36.1 % (37.0-47.0); Hemoglobin 11.1 g/dL (12.0-15.0); Mean Corpuscular HGB Conc 30.7 g/dl (32-36); Mean Corpuscular Hemoglobin 28.3 pg (26-34); Mean Corpuscular Volume 92.1 fl (80-100); Platelet Count Result 320 k/mm3 (150-375); Red Blood Count 3.92 M/mm3 (4.2-5.4); White Blood Count 19.8 K/mm3 (4.5-10.0)
[2025-03-05 06:47] LABS: Anion Gap 8 mmol/L (4-12); Blood Urea Nitrogen 8 mg/dL (7-17); Calcium 8.2 mg/dL (8.4-10.2); Carbon Dioxide 26 mmol/L (22-30); Chloride 98 mmol/L (98-107); Estimated CRCL calculation 136 ml/min; Estimated Glomerular Filt Rate > 60; Glucose 94 mg/dL (65-110); Potassium 3.2 mmol/L (3.4-5.0); Sodium 132 mmol/L (137-145)
[2025-03-05] MEDS: IBUPROFEN IV 800 MG/200 ML 800 MG/200 ML BAG 400 MG IVPB (07:12)
[2025-03-05 08:49] VITALS: PULSE 102; RESP 20; O2SAT 99
[2025-03-05] MEDS: ENOXAPARIN 40 MG/0.4 ML SYRINGE SUB-Q (09:08)
--- NOTE | 2025-03-05 09:35 | PM.PNGS ---
Progress Note: A&P Assessment and Plan (1) Acute appendicitis: Qualifiers: Acute appendicitis type: with localized peritonitis Appendicitis abscess presence: without abscess Appendicitis gangrene presence: without gangrene Appendicitis perforation presence: without perforation Qualified Code(s): K35.30 - Acute appendicitis with localized peritonitis, without perforation or gangrene Code(s): K35.80 - Unspecified acute appendicitis Status: Acute Assessment and Plan: POD2 s/p laparoscopic appendectomy and drainage of intraabdominal abscess for perforated appendicitis. Still notes abdominal pain, but improved from yesterday. Pain is been managed with [place] and Dilaudid. Patient expresses that pain is tolerable with 10 mg [place], but when she takes the 5 mg [place] she feels as though she needs the Dilaudid for extra pain relief. WBC count remains elevated at 19.8. Patient became febrile overnight and remains febrile this morning. CT of the abdomen was obtained and showed no acute processes or abscess. Surgically stable for discharge with outpatient follow up in general surgery office. Will be discharged home on oral antibiotics. (2) Morbid obesity: Code(s): E66.01 - Morbid (severe) obesity due to excess calories Status: Acute Plan I have discussed the patient's case and plan of care with Dr. Vides. Subjective Subjective Date/Time Seen: 03/05/25 09:35 Post Op day: 3 Patient reports: no new complaints, feels better, tolerating a regular diet, bowel movement and fever Interval history: Patient is doing well this morning. She is lying on count chest she states she has a hard time sleeping in the uncomfortable bed. Febrile overnight. WBC this morning 19.8, 21.[address] of the abdomen was obtained this morning and demonstrated expected postoperative changes with small amount of residual free intraperitoneal gas and fluid. No abscess or other acute process identified. Patient states that pain is manageable now, but she is wary to go home on low dose of pain medication. Patient had a bowel movement last night and also this morning. Exam Const: General: comfortable and no acute distress Eyes: General: appearance normal, both eyes and all related structures GI: Inspection: normal to inspection, non-distended, incision (Dry and glue intact), Pannus present and obesity Other: MAYELIN drain with serosanguineous drainage Objective Data Vital Signs Vital Signs: Vital Signs - 24 hr 03/04/25 14:00 03/04/25 14:53 03/04/25 15:53 Temperature 101.0 F H 101 F H 100.6 F H Pulse Rate 115 H Respiratory Rate 20 Blood Pressure 124/72 Pulse Oximetry 94 Oxygen Delivery 03/04/25 21:59 03/04/25 22:02 03/04/25 22:05 Temperature 99.7 F H 100 F H Pulse Rate 113 H Respiratory Rate 28 H Blood Pressure 121/76 Pulse Oximetry 98 Oxygen Delivery Room Air 03/05/25 06:00 03/05/25 08:49 Temperature 99.7 F H Pulse Rate 109 H 102 H Respiratory Rate 20 20 Blood Pressure 135/80 Pulse Oximetry 100 99 Oxygen Delivery Intake/Output Intake/Output: Intake & Output 03/02/25 03/03/25 03/04/25 03/05/25 23:59 23:59 23:59 23:59 Intake Total 2268 1030 2500 300 Output Total 300 30 30 Balance 1968 1000 2470 300 Meds/Results Medications: Active Medications Generic Name Dose Route Start Last Admin Trade Name Freq PRN Reason Stop Dose Admin Acetaminophen 650 mg 03/01/25 16:43 03/05/25 00:36 Acetaminophen 325 Mg Tablet PO 650 mg Q4H PRN Administration Mild Pain (1-3) or Fever Hydrocodone Bitart/Acetaminophen 1 tab 03/02/25 12:20 03/05/25 02:08 Hydrocodone/Acetaminophen (*Crx) 10-325 Mg Tablet PO 1 tab Q4H PRN Administration Pain Rated 7-10 Hydrocodone Bitart/Acetaminophen 1 tab 03/02/25 12:20 03/05/25 09:07 Hydrocodone/Acetaminophen (*Crx) 5-325 Mg Tablet PO 1 tab Q4H PRN Administration Pain Rated 4-6 Dextrose 12.5 gm 03/01/25 16:43 Dextrose 50% 25 Gm/50 Ml Syringe IV PUSH PRN PRN Hypoglycemia Protocol Enoxaparin Sodium 40 mg 03/03/25 09:00 03/05/25 09:08 Enoxaparin 40 Mg/0.4 Ml Syringe SUB-Q 40 mg DAILY THIERRY Administration Glucagon 1 mg 03/01/25 16:43 Glucagon For Inj 1 Mg Vial IM PRN PRN Hypoglycemia Protocol Glucose 15 gm 03/01/25 16:43 Glucose Oral Gel 15 Gm Of Glucse In 37.5 Gm Tube PO PRN PRN Hypoglycemia Protocol Hydromorphone HCl 1 mg 03/02/25 12:20 03/04/25 08:44 Hydromorphone Hcl Inj (*Crx) 1 Mg/Ml Syr IV PUSH 1 mg Q2H PRN Administration Breakthrough Pain Rated 7-10 or NPO Hydromorphone HCl 0.5 mg 03/02/25 12:20 Hydromorphone Hcl Inj (*Crx) 1 Mg/Ml Syr IV PUSH Q2H PRN Breakthrough Pain Rated 4-6 or NPO Piperacillin Sod/Tazobactam 50 mls @ 100 mls/hr 03/02/25 00:00 03/05/25 05:33 Sod 3.375 gm/ Sodium Chloride IVPB 100 mls/hr Q6H THIERRY Administration Dextrose 1,000 mls @ 100 mls/hr 03/01/25 16:43 Dextrose 5% 1,000 Ml IVPB PRN PRN Hypoglycemia Protocol Ibuprofen 800 mg in 200 mls @ 400 mls/hr 03/02/25 12:20 03/05/25 07:12 Caldolor 800 Mg/200 Ml IVPB 400 mls/hr Q6H PRN Administration Breakthrough Pain Rated 1-3 or NPO Naloxone HCl 0.1 mg 03/02/25 12:20 Naloxone Hcl 0.4 Mg/Ml Vial IV PUSH Q2M PRN Opiate Reversal Ondansetron HCl 4 mg 03/01/25 16:43 03/04/25 08:44 Ondansetron Inj 4 Mg/2 Ml Vial IV PUSH 4 mg Q4H PRN Administration Nausea Radiology Results: ITS Impressions Pelvic/Transvag US 03/01/25 16:10 IMPRESSION: 1. Small uterine fibroid posteriorly in the myometrium measuring 3 mm. Abdomen/Pelvis CT 03/05/25 09:03 IMPRESSION: 1. Expected post operative changes of a recent laparoscopic appendectomy with small amount of residual free intraperitoneal gas and fluid. No organized abscess or other acute intra abdominal/pelvic process. Labs Labs: Laboratory Results - last 24 hr 03/05/25 05:53 WBC 19.8 H RBC 3.92 L Hgb 11.1 L Hct 36.1 L MCV 92.1 MCH 28.3 MCHC 30.7 L RDW 13.6 Plt Count 320 MPV 10.4 Sodium 132 L Potassium 3.2 L Chloride 98 Carbon Dioxide 26 Anion Gap 8 BUN 8 Creatinine 0.72 Estim Creat Clear Calc 136 Estimated GFR > 60 Glucose 94 Calcium 8.2 L
--- NOTE | 2025-03-05 12:11 | PM.DS ---
DS: Admitting Diagnosis Discharge Date 03/05/2025 Admitting Diagnosis Acute appendicitis DS: Discharge Diagnosis Discharge Diagnosis (1) Acute appendicitis: Qualifiers: Acute appendicitis type: with localized peritonitis Appendicitis abscess presence: with abscess Appendicitis gangrene presence: without gangrene Appendicitis perforation presence: with perforation Qualified Code(s): K35.33 - Acute appendicitis with perforation, localized peritonitis, and gangrene, with abscess Code(s): K35.80 - Unspecified acute appendicitis Status: Acute DS: Summary Hospital Course Reason for hospitalization: Acute appendicitis Hospital Course: This is a 34 year old woman who presented to the emergency department 03/01/2025 with right lower quadrant abdominal pain. She was noted to have an elevated white blood count and CT showed evidence of acute appendicitis. She was admitted and started on broad-spectrum IV antibiotics. Discussions were made with the patient about medical and surgical treatment options and decision was made to proceed with laparoscopic appendectomy on 03/02/2025. She was found to have perforated appendicitis at the time of surgery and a drain was placed. She was then returned to the surgical floor postoperatively. Her diet and activity were slowly advanced as tolerated. She was still having some pain and difficulty with activity and her white blood count was still elevated on postop day 1. Her drain output was looking slightly cloudy but mostly serosanguineous. On postop day 2 her white blood count had gone up again and she did have some occasional fevers. IV Zosyn was continued and she was kept in the hospital another day. On postoperative day 3 her white blood count had gone down slightly but she was still occasionally having fevers. A repeat CT abdomen and pelvis with contrast was performed. This showed postoperative findings with no signs of organized abscess. Her drain was having minimal output and still appeared serosanguineous. I discussed with patient about remaining in hospital 1 more day to keep monitoring for fevers and any other worsening signs. Patient was feeling better and was wanting to be discharged home. Her bowels were moving and she was tolerating her diet. I discussed in detail with her the risks of worsening infection and the need to come back in to the hospital if any signs or developing. I also discussed watching for any worsening respiratory issues, leg swelling, or any other new symptoms. Patient voiced her understanding and was still wishing to be discharged home. She was discharged home on 03/05/2025. Her drain was removed prior to discharge. Status at Discharge Functional status at discharge: independent ambulation Overall status at discharge: patient is progressing back to baseline Time Spent with Patient Time attestation: Total time spent providing and/or coordinating discharge services: Time spent: Less than 30 minutes Exam Const: General: comfortable and no acute distress Resp: Effort & Inspection: normal respiratory effort Auscultation: clear to auscultation bilaterally Cardio: Rate: regular rate Rhythm: regular rhythm Heart sounds: S1 normal heart sound present and S2 normal heart sound present GI: Inspection: non-distended, Pannus present, obesity and other (MAYELIN serosanguineous) GI Palp: Yes Soft to palpation, Yes Tenderness to palpation present (GI) (Incisional) and No Guarding due to palpation present (GI) DS: Data Data Completed and Pending Completed studies during hospitalization: Pending at discharge 03/02/25 10:16 Surgical [PTH] Routine Labs on day of discharge: Labs from last 24 hours 03/05/25 05:53 WBC 19.8 H RBC 3.92 L Hgb 11.1 L Hct 36.1 L MCV 92.1 MCH 28.3 MCHC 30.7 L RDW 13.6 Plt Count 320 MPV 10.4 Sodium 132 L Potassium 3.2 L Chloride 98 Carbon Dioxide 26 Anion Gap 8 BUN 8 Creatinine 0.72 Estim Creat Clear Calc 136 Estimated GFR > 60 Glucose 94 Calcium 8.2 L Imaging Radiologist's impression: ITS Impressions Pelvic/Transvag US 03/01/25 16:10 IMPRESSION: 1. Small uterine fibroid posteriorly in the myometrium measuring 3 mm. Abdomen/Pelvis CT 03/01/25 16:12 IMPRESSION: Acute appendicitis. No perforation or abscess Abdomen/Pelvis CT 03/05/25 09:03 IMPRESSION: 1. Expected post operative changes of a recent laparoscopic appendectomy with small amount of residual free intraperitoneal gas and fluid. No organized abscess or other acute intra abdominal/pelvic process. Discharge Plan Discharge Attending physician on discharge: Deepak Bhakta Discharging Clinician: Deepak Bhakta Patient Disposition: Home Activity: other - see discharge instructions Diet: regular Wound Care Instructions: other - see discharge instructions Discharge Instructions: DISCHARGE INSTRUCTION SHEET FOR HERNIA, GALLBLADDER AND APPENDIX SURGERIES DR. BHAKTA PATIENT TO TAKE HOME 1. May shower in 24 hours, no soaking in bath x 2weeks. Remove bandage at drain site before showering, may re-apply bandage as needed for any wound opening. 2. Call office for: Wound increasingly painful or bleeding Vomiting Fever of greater than 101 degrees 3. If no bowel movement for three days, take 1 oz. (30 ml) Milk of Magnesia or MiraLax 17g 1 to 2 times daily. 4. No heavy lifting > 10-15 pounds x weeks for hernia repairs and 2 weeks for laparoscopic cholecystectomy or appendectomy. 5. No driving for 3 days or while taking narcotic pain medications. 6. Ice to surgical site for 48 hours (30 min on, then 30 min off). 7. Up walking 10-30 minutes three times per day. 8. Resume previous home medications. 9. Follow-up 10-14 days in office for wound check or as previously scheduled. ([phone]) 10. Oral pain medications prescription to be sent to pharmacy. Take Tylenol 500mg every 6 hours and Ibuprofen 600mg every 6 hours for the first 2 days, then as needed. 11. NUTRITION: Start out by drinking fluids and increase your diet as tolerated. If you experience nausea, try dry toast, crackers, and 7-UP. If nausea or vomiting persists, contact your surgeon?s office. 12. Gallbladders-Low Fat Diet for 2 weeks (send care note of low fat diet) 13. Inguinal Hernias-wear scrotal support for 48 hours 14. Abdominal Hernias-if sent home with abdominal binder, wear for the first 2 weeks (may remove to shower or at night to sleep). Revised October 2018 Patient Instructions: Antibiotic Form Patient Language: Citizen Of [place] Stand Alone Forms: General Discharge Information Follow-up/Referrals: Deepak Bhakta DO [Physician, General Surgery] - 2 Weeks Discharge Medications: New hydrocodone-acetaminophen 5-325 mg tablet 1 - 2 tablet PO Q4H PRN (Reason: pain) Qty: 15 0RF metronidazole 500 mg tablet 500 mg PO Q8H 10 Days Qty: 30 0RF amoxicillin-pot clavulanate 875-125 mg tablet 1 tablet PO Q12H 10 Days Qty: 20 0RF Continued semaglutide (weight loss) 2.4 mg/0.75 mL pen injector 2.4 mg subcut [id number] Date of admission: 03/05/25 08:00 Primary Care Provider: EDGAR,ABI Admitting Provider: Deepak Bhakta Attending physician on admission: Deepak Bhakta Condition: Stable
== END 2025-03-05 16:15 | disposition home or self-care (01) | DRG 398 ==
LOC: ANHED 14:18 → ANH3MEDSUR 17:13
PROVIDERS: Nurse Practitioner Family; Admitting Provider Surgery; Emergency Provider Physician Assistant; PCP Nurse Practitioner Family; Visit Provider Surgery
PROC: 0DTJ4ZZ Resection of Appendix, Percutaneous Endoscopic Approach (ICD-10-PCS; CPT 44970; principal; 2025-03-02 09:30)
DX: K35.33 Acute appendicitis with perforation, localized peritonitis, and gangrene, with abscess (principal); Z68.43 Body mass index [BMI] 50.0-59.9, adult; K38.1 Appendicular concretions; R50.82 Postprocedural fever; E66.01 Morbid (severe) obesity due to excess calories
CPT/HCPCS: 36415; 74177; 76830; 76856; 80048; 80053; 81003; 81025; 83690; 85025; 85027; 88304; 96365; 96375; 99285; A9270; G0378; J0330; J1100; J1171; J1650; J1741; J1885; J2405; J2543; J2704; J3010; J7030; J7120; Q9967